=== PATIENT | female | born 1985 | race Caucasian/White ===

== ENCOUNTER 2021-03-17 14:32 | Outpatient (CLI) | payer OTHER, SELFPAY ==
--- NOTE | ~2021-03-17 | US_ITS ---
EXAMINATION: US thyroid DATE: 03/17/2021 15:05 INDICATION: Goiter. TECHNIQUE: Multiple ultrasound images of the thyroid were obtained. COMPARISON: None. FINDINGS: The right thyroid lobe measures 4.7 x 1.3 x 1.2 cm. The left thyroid lobe measures 3.9 x 2.1 x 2.0 c m. In the left thyroid lobe, there is a 3.5 cm solid, hypoechoic, [id number] nodule with smooth margin without echogenic foci (TI-RADS TR4). There is a 4 mm nodule in right thyroid lobe, likely no t clinically significant. IMPRESSION: 1. Left thyroid nodule. Ultrasound-guided fine-needle aspiration is recommended. Reviewed, dictated and finalized at location [facility]. IMPRESSION: 1. Left thyroid nodule. Ultrasound-guided fine-needle aspiration is recommended .
== END 2021-03-17 14:33 | disposition home or self-care (01) ==
LOC: ANHIMG 14:42
PROVIDERS: PCP Nurse Practitioner Family; Visit Provider Nurse Practitioner Family
DX: E04.9 Nontoxic goiter, unspecified (principal); R09.89 Other specified symptoms and signs involving the circulatory and respiratory systems
CPT/HCPCS: 76536

== ENCOUNTER 2023-08-17 14:53 | Outpatient (CLI) | payer OTHER, SELFPAY ==
--- NOTE | ~2023-08-17 | CT_ITS ---
EXAMINATION: CT sinus wo con the nasal septum TECHNIQUE: Computed tomography (CT) of the paranasal si nuses was performed without contrast. Iterative reconstruction technique was employed. Exam dose: 32 1.89 mGy-cm total exam DLP. COMPARISON: None FINDINGS: The nasal septum is midline. There is prominent soft tissue swelling engulfing the right middle nasal turbinate, moderate soft tis marshal swelling of the raising tarsal turbinates. Caren bullosa of the left middle nasal turbinate. There are nasal antral windows bilaterally. There is nearly complete opacification of the right frontal sinus and extensive opacification of the right ethmoid air cells. Opacification of an anterior left ethmoid air cell partial opacification of the posterior left ethmoid air cell. Very prominent mucoperiosteal thickening of both maxillary sinuses. 8.7 mm polyp or mucous retention cysts in the anterior floor of the right sphenoid sinus. The mastoid air cells are normally developed and aerated bilaterally. The middle and inner ear apparatus appear normal bilaterally. IMPRESSION: Status post bilateral nasal antral windows Midline nasal septum Caren bullosa of left middle nasal turbinate Extensive soft tissue swelling engulfing the right middle nasal turbinate Severe mucoperiosteal thickening of the sinus, bilateral maxillary sinuses, right ethmoid air cells a nd to a lesser extent left ethmoids Soft tissue opacity at anterior base of right sphenoid sinus Reviewed, dictated and finalized at [facility]. Reviewed, dictated and finalized at location [facility]. IMPRESSION: Status post bilateral nasal antral windows Midline nasal septum Caren bullosa of left middle nasal turbinate Extensive soft tissue swelling engulfing the right middle nasal turbinate Severe mucoperiosteal thickening of the sinus, bilateral maxillary sinuses, rig ht ethmoid air cells and to a lesser extent left ethmoids Soft tissue opacity at anterior base of right sphenoid sinus
== END 2023-08-17 14:54 | disposition home or self-care (01) ==
LOC: ANHIMG 14:54
PROVIDERS: PCP Nurse Practitioner Family; Visit Provider Physician Assistant
DX: J32.9 Chronic sinusitis, unspecified (principal)
CPT/HCPCS: 70486

== ENCOUNTER 2024-02-07 09:39 | Outpatient (CLI) | payer OTHER, SELFPAY ==
[2024-02-07 10:02] LABS: Basophils Percent Auto 0.4 % (0.2-1.2); Eosinophils Absolute Auto 0.1 K/mm3 (0-0.3); Eosinophils Percent Auto 1.1 % (0-4.4); Hematocrit 42.6 % (37.0-47.0); Hemoglobin 13.5 g/dL (12.0-15.0); Immature Granulocyte Absolute 0.01 K/mm3 (0.00-0.031); Immature Granulocyte Percent A 0.2 % (0-0.5); Lymphocytes Absolute Auto 1.57 K/mm3 (0.9-3.2); Lymphocytes Percent Auto 29.8 % (18.3-44.2); Mean Corpuscular HGB Conc 31.7 g/dl (32-36); Mean Corpuscular Hemoglobin 29.3 pg (26-34); Mean Corpuscular Volume 92.6 fl (80-100); Mean Platelet Volume 10.2 fl (7.4-10.4); Monocytes Absolute Auto 0.4 K/mm3 (0.1-0.6); Neutrophils Absolute Auto 3.2 K/mm3 (1.3-6.7); Neutrophils Percent Auto 60.5 % (45.5-73.1); Platelet Count Result 241 k/mm3 (150-375); Red Cell Distribution Width 12.9 % (11.5-14.5); White Blood Count 5.3 K/mm3 (4.5-10.0)
[2024-02-07 10:27] LABS: Anion Gap 8 mmol/L (4-12); Blood Urea Nitrogen 14 mg/dL (7-17); Calcium 9.1 mg/dL (8.4-10.2); Carbon Dioxide 22 mmol/L (22-30); Chloride 109 mmol/L (98-107); Estimated Glomerular Filt Rate > 60; Glucose 94 mg/dL (65-110); Potassium 3.9 mmol/L (3.4-5.0); Sodium 139 mmol/L (137-145)
[2024-02-07 10:53] LABS: Thyroid Stimulating Hormone 0.594 uIU/mL (0.465-4.680)
[2024-02-07 11:05] LABS: Free T4 Free Thyroxine 1.08 ng/mL (0.78-2.19)
[2024-02-09 14:34] LABS: Immunoglobulin A 196 mg/dL (47-310); Immunoglobulin G 1255 mg/dL (600-1640); Immunoglobulin M 82 mg/dL (50-300)
[2024-02-12 10:04] LABS: Immunoglobulin G, Serum 1085 mg/dL (600-1640); Immunoglobulin G1 533 mg/dL (382-929); Immunoglobulin G2 347 mg/dL (241-700); Immunoglobulin G3 30 mg/dL (22-178); Immunoglobulin G4 98.9 mg/dL (4.0-86.0)
== END 2024-02-07 09:40 | disposition home or self-care (01) ==
PROVIDERS: PCP Nurse Practitioner Family; Visit Provider Physician Assistant
DX: R09.81 Nasal congestion (principal); J45.909 Unspecified asthma, uncomplicated; J33.9 Nasal polyp, unspecified; E04.9 Nontoxic goiter, unspecified
CPT/HCPCS: 36415; 80048; 82784; 82787; 84439; 84443; 85025

== ENCOUNTER 2024-07-22 15:25 | Outpatient (NON) | payer OTHER, SELFPAY ==
[2024-07-22 19:05] LABS: Add Urine Microscopic? NO; Appearance Urine Clear (Clear); Bilirubin Urine Negative (Negative); Blood Urine Negative (Negative); Color Urine Yellow (Yellow); Glucose Urine UA Negative (Negative); Ketones Urine Negative (Negative); Leukocyte Esterase Ur Negative LEU/UL (Negative); Nitrate Urine Negative (Negative); Protein Urine Negative (Negative); Specific Grav Ur 1.008 (1.001-1.035); Urobilinogen Urine 0.2 mg/dL (<2.0)
== END 2024-07-22 15:26 | disposition home or self-care (01) ==
PROVIDERS: PCP Clinical Nurse Specialist; Visit Provider Clinical Nurse Specialist
DX: R39.9 Unspecified symptoms and signs involving the genitourinary system (principal)
CPT/HCPCS: 81003

== ENCOUNTER 2024-07-23 08:27 | Outpatient (CLI) | payer OTHER, SELFPAY ==
[2024-07-23 08:59] LABS: Basophils Percent Auto 0.2 % (0.2-1.2); Eosinophils Absolute Auto 0.1 K/mm3 (0-0.3); Eosinophils Percent Auto 2.9 % (0-4.4); Hematocrit 42.1 % (37.0-47.0); Hemoglobin 13.8 g/dL (12.0-15.0); Immature Granulocyte Absolute 0.01 K/mm3 (0.00-0.031); Immature Granulocyte Percent A 0.2 % (0-0.5); Lymphocytes Absolute Auto 1.48 K/mm3 (0.9-3.2); Lymphocytes Percent Auto 32.8 % (18.3-44.2); Mean Corpuscular HGB Conc 32.8 g/dl (32-36); Mean Corpuscular Hemoglobin 30.4 pg (26-34); Mean Corpuscular Volume 92.7 fl (80-100); Mean Platelet Volume 10.4 fl (7.4-10.4); Monocytes Absolute Auto 0.5 K/mm3 (0.1-0.6); Monocytes Percent Auto 10.2 % (2.6-8.5); Neutrophils Absolute Auto 2.4 K/mm3 (1.3-6.7); Neutrophils Percent Auto 53.7 % (45.5-73.1); Platelet Count Result 224 k/mm3 (150-375); Red Blood Count 4.54 M/mm3 (4.2-5.4); Red Cell Distribution Width 12.9 % (11.5-14.5); White Blood Count 4.5 K/mm3 (4.5-10.0)
[2024-07-23 09:17] LABS: Alanine Aminotransferase 13 U/L (6-35); Albumin Level 4.1 g/dL (3.5-5.1); Alkaline Phosphatase 38 U/L (38-126); Anion Gap 5 mmol/L (4-12); Aspartate Amino Transferase 22 U/L (14-36); Bilirubin,Total 0.9 mg/dL (0.2-1.3); Blood Urea Nitrogen 14 mg/dL (7-17); Calcium 8.4 mg/dL (8.4-10.2); Carbon Dioxide 25 mmol/L (22-30); Chloride 108 mmol/L (98-107); Cholesterol 167 mg/dL (0-200); Estimated Glomerular Filt Rate > 60; Glucose 86 mg/dL (65-110); HDL Direct 63 mg/dL; Potassium 4.1 mmol/L (3.4-5.0); Sodium 138 mmol/L (137-145); Triglycerides 42 mg/dL (<150)
[2024-07-23 09:23] LABS: Iron 92 ug/dL (37-170)
[2024-07-23 09:28] LABS: LDL Cholesterol Direct 73 mg/dL
[2024-07-23 09:38] LABS: Percent Iron Saturation 30 % (20-50)
[2024-07-23 09:44] LABS: Thyroid Stimulating Hormone 0.747 uIU/mL (0.465-4.680)
[2024-07-23 09:47] LABS: Free T4 Free Thyroxine 1.09 ng/mL (0.78-2.19); Vitamin D 25 Hydroxy 37.2 ng/mL
[2024-07-29 09:43] LABS: Thyroid Peroxidase Antibodies <1 IU/mL (<9)
== END 2024-07-23 08:28 | disposition home or self-care (01) ==
PROVIDERS: PCP Clinical Nurse Specialist; Visit Provider Clinical Nurse Specialist
DX: R74.8 Abnormal levels of other serum enzymes (principal); D64.9 Anemia, unspecified; R73.9 Hyperglycemia, unspecified; E04.9 Nontoxic goiter, unspecified; E55.9 Vitamin D deficiency, unspecified; J45.909 Unspecified asthma, uncomplicated; Z13.220 Encounter for screening for lipoid disorders; Z13.228 Encounter for screening for other metabolic disorders
CPT/HCPCS: 36415; 80053; 80061; 82306; 82607; 82728; 83036; 83540; 83550; 84439; 84443; 85025; 86376

== ENCOUNTER 2024-07-25 06:51 | Outpatient (CLI) | payer OTHER, SELFPAY ==
--- NOTE | ~2024-07-25 | CT_ITS ---
Non-contrast CT scan of the Abdomen and Pelvis Clinical indication: Abdominal pain Technique: 2.5 mm axial scans were obtained through the abdomen and pelvis without intravenous or or al contrast. Dose reduction technique was used on this scan by utilizing automated exposure control a nd iterative reconstruction technique. The dose-length product (DLP) was 691.70 mGy-cm. Findings: Images through the lung bases reveal no abnormalities. There is no evidence of renal or ureteral calculi. The kidneys and the ureters are nondilated. Small left hepatic lobe cyst noted. The spleen, pancreas, gallbladder, and adrenals appear normal. T here is no aortic aneurysm. There is no evidence of bowel obstruction. Images through the pelvis were performed. There is trace pelvic free fluid. Urinary bladder unremarka ble. No pelvic mass seen. Impression: Trace pelvic free fluid, nonspecific. No other significant findings. Reviewed, dictated and finalized at [facility]. Impression: Trace pelvic free fluid, nonspecific. No other significant findings.
== END 2024-07-25 06:52 | disposition home or self-care (01) ==
PROVIDERS: PCP Clinical Nurse Specialist; Visit Provider Clinical Nurse Specialist
DX: R10.9 Unspecified abdominal pain (principal); R39.9 Unspecified symptoms and signs involving the genitourinary system; R10.2 Pelvic and perineal pain
CPT/HCPCS: 74176

== ENCOUNTER 2024-12-25 09:06 | Outpatient (CLI) | payer OTHER, SELFPAY ==
--- NOTE | ~2024-12-25 | MM_ITS ---
EXAMINATION: MM screening rehana BI w [facility] HISTORY: Screening mammogram TECHNIQUE: Craniocaudal and mediolateral oblique 3-D tomosynthesis images were obtained and synthetic 2-D images were generated. CAD analysis was submitted and interpreted. COMPARISON: No prior mammogram is available for comparison at this institution. BREAST PARENCHYMAL COMPOSITION:Not Dense. There are scattered areas of fibroglandular density. FINDINGS: No suspicious mass, calcification, or architectural distortion are identified in either nori ast to suggest malignancy. There has been no suspicious interval change. IMPRESSION: No mammographic evidence of malignancy. Recommend routine screening mammography in one year. BI-RADS Category 1: Negative Reviewed, dictated and finalized at location .
--- OUTSIDE RECORDS SUMMARY | 2024-12-25 10:04 | XMS_ITS ---
Author Organization [employer] [place] Address [address] [place] [address] Care Team Providers Care Car Lubricator Name Role Phone Varsha Setward Primary Care Provider REASON FOR VISIT lab review// text please Medications Medication SIG (Take, Route, Frequency, Duration) Notes Start Date End Date Status Albuterol Sulfate HFA 108 (90 Base) MCG/ACT 2 INH inhaled every 6 hours 08/22/2024 Active Vitamin D (Cholecalciferol) 25 MCG (1000 UT) 1 capsule Orally Once a day Active Encounters Encounter Location Date Provider Diagnosis [facility] [address] [address] [place] [address] 09/17/2024 Varsha Steward Vitamin D deficiency , unspecified E55.9 ; Nontoxic single thyroid nodule E04.1 ; Iron deficiency E61.1 and Other fatigue R53.83 Assessments Encounter Date Diagnosis (ICD Code) Assessment Notes Treatment Notes Treatment Clinical Notes Section Notes 09/17/2024 Vitamin D deficiency, unspecified (ICD-10 - E55.9) 09/17/2024 Nontoxic single thyroid nodule (ICD-10 - E04.1) 09/17/2024 Iron deficiency (ICD-10 - E61.1) 09/17/2024 Other fatigue (ICD-10 - R53.83) 09/17/2024 Other Assessment and Plan: 1. Vitamin D deficiency:- Continue taking vitamin D and calcium supplements- Increase calcium intake to at least 2000 milligrams daily- Continue taking magnesium supplements 2. Low iodine levels and thyroid nodules:- Continue taking thyroid supplements- Monitor progress and discuss with surgeon during the consult on December 22 3. Borderline low ALKFOS and calcium levels:- Rule out hypophosphatasia, considering the absence of bone issues- Increase calcium intake as mentioned above 4. Borderline anemia and low ferritin levels:- Increase iron intake to 65 milligrams of elemental iron daily- Monitor symptoms and consider transvaginal ultrasound if symptoms worsen during cycles 5. Sleep disturbances due to sinus issues:- Continue new steroid treatment prescribed by ENT- Monitor sleep quality and discuss with ENT if no improvement 6. Low progesterone levels and possible ovarian cysts/fibroids:- Consider low-dose progesterone therapy (0.35 mg daily or 100 micrograms from days 14 through 28 of the cycle) if symptoms persist or worsen- Reevaluate the need for a transvaginal ultrasound based on symptom progression 7. Thyroid surgery scheduling:- Schedule surgery within a month of the initial appointment in December- Follow up with Dr. Varsha Steward after surgery Patient to contact the office if any concerns arise or if there is a need for progesterone therapy. Spent 25 minutes preparing to see the patient (ex review of tests/chart), obtaining and / or reviewing separately obtained history, performing a medically appropriate examination and/or evaluation, counseling and educating the patient/family/ca regiver, ordering medications, tests, or procedures, referring and communicating with other health healthcare business analyst, documenting clinical information in the electronic or other health record, independently interpreting results and communicating results to the patient/family/ca regiver and care coordinating patient plan. Patient alert and oriented x 4 and aware of discussion noted above and in agreeance to plan in management of thyroid nodule, fatigue, finding of iodine deficiency, DIMITRI and low calcium/vit D def. Due to the nature of telemedicine, the ability to do physical assessment was limited to what can be accomplished by patient directed telehealth visit based on instruction. Those limits are understood by the patient and myself. Impression is based on history, available information, and physical findings accomplished with telehealth visit. Chronic disease/problem list/ medication list reviewed and updated where indicated. Discussed diagnosis, plan including risks, benefits, and options of treatment. Advised to call for new, worsening, or persistent symptoms. Level of patient risk was of moderate complexity due to the documented nature of presentation, the information assessment required and the nature of the development of an evaluation and treatment plan as documented. PMH, FHx, SHx, Surgical Hx, Quality management review carried out and addressed as documented today as part of this visit. Medication list was reviewed and adjusted as indicated. Medication requiring a refill was addressed. Risk and benefits of any new medications were discussed and all questions were answered. Plan Of Treatment Treatment Notes Assessment Notes Other Assessment and Plan: 1. Vitamin D deficiency:- Continue taking vitamin D and calcium supplements- Increase calcium intake to at least 2000 milligrams daily- Continue taking magnesium supplements 2. Low iodine levels and thyroid nodules:- Continue taking thyroid supplements- Monitor progress and discuss with surgeon during the consult on December 22 3. Borderline low ALKFOS and calcium levels:- Rule out hypophosphatasia, considering the absence of bone issues- Increase calcium intake as mentioned above 4. Borderline anemia and low ferritin levels:- Increase iron intake to 65 milligrams of elemental iron daily- Monitor symptoms and consider transvaginal ultrasound if symptoms worsen during cycles 5. Sleep disturbances due to sinus issues:- Continue new steroid treatment prescribed by ENT- Monitor sleep quality and discuss with ENT if no improvement 6. Low progesterone levels and possible ovarian cysts/fibroids:- Consider low-dose progesterone therapy (0.35 mg daily or 100 micrograms from days 14 through 28 of the cycle) if symptoms persist or worsen- Reevaluate the need for a transvaginal ultrasound based on symptom progression 7. Thyroid surgery scheduling:- Schedule surgery within a month of the initial appointment in December- Follow up with Dr. Varsha Steward after surgery Patient to contact the office if any concerns arise or if there is a need for progesterone therapy. Spent 25 minutes preparing to see the patient (ex review of tests/chart), obtaining and / or reviewing separately obtained history, performing a medically appropriate examination and/or evaluation, counseling and educating the patient/family/caregiver, ordering medications, tests, or procedures, referring and communicating with other health healthcare business analyst, documenting clinical information in the electronic or other health record, independently interpreting results and communicating results to the patient/family/caregiver and care coordinating patient plan. Patient alert and oriented x 4 and aware of discussion noted above and in agreeance to plan in management of thyroid nodule, fatigue, finding of iodine deficiency, DIMITRI and low calcium/vit D def. Due to the nature of telemedicine, the ability to do physical assessment was limited to what can be accomplished by patient directed telehealth visit based on instruction. Those limits are understood by the patient and myself. Impression is based on history, available information, and physical findings accomplished with telehealth visit. Chronic disease/problem list/ medication list reviewed and updated where indicated. Discussed diagnosis, plan including risks, benefits, and options of treatment. Advised to call for new, worsening, or persistent symptoms. Level of patient risk was of moderate complexity due to the documented nature of presentation, the information assessment required and the nature of the development of an evaluation and treatment plan as documented. PMH, FHx, SHx, Surgical Hx, Quality management review carried out and addressed as documented today as part of this visit. Medication list was reviewed and adjusted as indicated. Medication requiring a refill was addressed. Risk and benefits of any new medications were discussed and all questions were answered. Next Appt Details Follow Up: 4 Months, Reason: labwork Progress Notes * Ellen URIBEDOB:1985 (39 yo F)Acc No.[id number]:09/17/2024 Progress Notes Patient: Ellen FUNEZ Provider: Lu Steward MD :1985 A ge:39 Y S ex:Female Date:09/17/2024 Address:[address] [place], [place] [id number] Subjective: * Chief Complaints: * 1 . Lab review// text please. * HPI: I nterval Hx: 39 yo female calls in today to initiate telehealth visit to discuss progress and management of vit D def, low iodine/hashimotos thyroiditis, along with low calcium. Verbal consent provided by patient to proceed with this visit. This visit was performed in office via provider and patient located in primary care office with real time audio with video. Ellen reports a family history of thyroid problems and has started taking a thyroid supplement. She is experiencing sleep disturbances due to sinus issues and is using a new steroid prescribed by her ENT. Her recent lab results indicate low levels of vitamin D, calcium, iodine, ferritin, and progesterone, with borderline low ALKFOS and iron levels. She is scheduled for a thyroid surgery consult on December 22 and is considering addressing her low progesterone levels and the possibility of a transvaginal ultrasound before the surgery. The patient, Ellen, reports a family history of thyroid problems and has recently started taking a thyroid supplement as recommended during the last appointment. She began taking the supplement after her recent blood work. Ellen has a surgery consult scheduled for December 22. She is currently taking vitamin D, calcium, iron, multivitamin, and thyroid supplements. The patient denies any bone or dental problems. She reports no significant changes in her condition since the last visit, mentioning that she got her period two days before her lab work and feels tired. Ellen has started a new steroid with her ENT to help with her sinuses. She denies any developmental issues during childhood. Ellen reports difficulty falling asleep and waking up multiple times during the night, primarily due to sinus issues. She describes her mood as stable, with occasional tiredness and annoyance but no significant anxiety. The patient has a 90-day supply of vitamins purchased online. She had a transvaginal ultrasound ordered by her primary care physician for a suspected burst ovarian cyst a few months ago, but the pain resolved, and she did not undergo the ultrasound. Ellen is considering whether to address her low progesterone levels and the possibility of a transvaginal ultrasound before her thyroid surgery. Diagnostic Test Results and Labs: - Vitamin D: Low (specific value not documented) - Iodine: 49 (desired levels 60-70) - Calcium: Low (specific value not documented) - Parathyroid Hormone (PTH): Lower than desired (specific value not documented) - Alkaline Phosphatase (ALKFOS): Borderline at 40 - Iron: Borderline (specific value not documented) - Ferritin: Low (specific value not documented) - Progesterone: Low (specific value not documented) - Blood counts: Normal (specific values not documented). * ROS: D ERMATOLOGY: no r allen. n o c hange in color of moles. n o?lumps. n o d ry or sensitive skin. n o h antonio. n o o karly skin. n o?acne. n o m oles-irregular. n o m oles-change/new. n o b oils. n o dandruff. n o e xcessive body odor. n o p soriasis. n o f ungal infections. n o n ail problems. n o r edness/inflammation. n o a thlete's foot. n o s kin cancer. n o e czema. E NDOCRINOLOGY: fatigue y es. n o e xcessive sweating. n o e xcessive thirst. n o e xcessive urination. n o w eight loss. n o s leep disturbance. n o c old intolerance. n o h eat intolerence. n o t hyroid disease. n o i ncreased loss of hair. n o h x of borderline diabetes. n o d iabetes. n o a bdormal body hair. n o r heumatism. n o c hanges in skin texture.? N EUROLOGY: headache y es. n o t ingling numbness. n o s eizures. n o i nsomnia. n o m sacha loss. n o d izziness. n o g ait abnormality. n o c hange in sensation anywhere on body. n o l ocalized weakness or numbness. n o b lackouts or near blackouts. n o m igraine. n o t remors.?no f ainting spells. n o h ead injury. n o s troke. O PTHALMOLOGY: no d iminished vision. n o e ye irritation. n o?drainage from eyes. n o b lurring of vision. n o s easonal eye sx. n o?dander related eye sx. n o l oss of vision. n o c ataracts. n o g lasses/contacts. n o g laucoma. n o d etached retina. n o m acular degeneration.?no e ye redness. R ESPIRATORY: shortness of breath y es. n o c hest pain. n o?wheezing. n o a sthma. n o b reathlessness when lying flat. n o p rolonged cough. n o f requent infections (bronchitis). n o e mphysema. n o c hest congestion. n o s leep apnea. A LLERGY: no r unny nose. n o s cratchy throat. n o i tchy eyes. n o e ar fullness. n o s inus congestion. n o s tuffy nose. n o w atery eyes. n o s easonal allergies. n o h ay fever. n o a llergy.?no p olyps. n o s neezing. H EMATOLOGY/LYMPH: no s wollen glands. n o f atigue. n o l oss of appetite. e asy bruising yes. e asy bleeding y es. n o a nemia. ? U ROLOGY: no d ifficulty urinating. n o b lood in urine. n o u rinary urgency. n o f requent urination. n o u rinary incontinence. n o v oiding dysfunction. n o v ulvodynia. n o d ysparaunia. n o r ecurrent UTI. n o w eak flow. n o d ribbling after urination. n o f requent bladder infections. n o k idney stone. n o k idney disease. n o u rine hesitancy.?no p ainful urination. N UTRITION: greater than body requirmemts y es. L ess than body requirements y es. a ppropriate / adequate y es, y es. C ONSTITUTIONAL: weight gain y es. n o l oss of appetite. n o?fever. w eakness y es. n o w eight loss. n o n ight sweats. n o n ausea. n o v isual changes. n o c hange in sleep patterns. h +p reviewed y es, R OS form reviewed with patient see scan for detail. n o c hange in activity capacity. E NT: no c old. c ough y es. n o c oughing blood.?no n ose bleed. n o h earing loss. n o c hange in voice. n o s ore throat. n o r inging in ears. n o s noring. n o e ar pain. n o r unny nose. n o w atery eyes. n o s inus infection. n o e ar infection. n o facial pain. n o h oarseness. n o g oiter. n o g um problems. n o?postnasal drip. n o f requent nosebleeds. C ARDIOLOGY: no c hest pain. n o p alpitations. n o l eg swelling. n o d izziness. n o s hortness of breath. n o v aricose veins.?no l eg cramps. n o c old hands or feet. n o h igh blood pressure. n o ankle swelling. n o c ardiac catheterization. n o h eart attacks. n o a ngina. n o m urmurs. n o l ow blood pressure. n o l eg pain that resolves w/rest. n o p urple fingers or lips. n o i rregular heart rate. n o c ongenital heart defects. n o d izziness when standing up quickly. n o a wakening at night short of breath. G ASTROENTEROLOGY: no n ausea. n o h eartburn. n o s tool incontinence. n o r eflux. n o a bdominal pain. n o i ndigestion. n o h emorrhoids. n o h iatal hernia. n o u lcers. n o a nal fissures. n o?hepatitis. n o g allstones. n o r ed blood after bowel movements. n o v omiting. n o b loating/belching. d ifficulty swallowing y es. n o d iarrhea.?no c onstipation. n o c hange in bowel habits. n o b lood in stool. ? M USCULOSKELETAL: no j oint swelling. n o j oint pain. n o l eg cramps. n o j oint stiffness. n o a rthritis. n o b ack pain. n o?muscle aches. n o m orning stiffness. n o t endinitis. n o n [place] pain. no b ursitis. n o b one marrow biopsy. n o g out. a ctivity intolerance?weakness. n o f racture. P SYCHOLOGY: no h igh stress level. n o d epression. n o?sleep disturbances. n o r se sx worse with stress. n o s uicidal ideation. n o e ating disorder. n o m ental or physical abuse. n o a nxiety. n o h eadaches. d isease state y es. F EMALE REPRODUCTIVE: no h eavy periods. n o d ysparaunia. n o s exually active. n o p remenstrual syndrome. n o d ysmenorrhea. n o i nfertility. n o f requent yeast infections. n o v aginal itching. n o i ntermenstrual bleeding. n o p ost coital bleeding. n o p ostmenopausal bleeding. n o p elvic pain. n o m enstral cycle. n o v aginal discharge. n o v aginal dryness. n o o varian cysts. n o f ibroids. n o d ischarge from breast. n o abn. bleeding between cycles. n o p ostmenopausal symptoms. n o l oss of sexual interest. n o p ainful sexual intercourse. n o e ndometriosis. n o v aginal warts. n o a bnormal pap. n o i rregular periods. n o a bnormal vaginal discharge. n o h ot flashes. * Medical History: * Medications: T aking Vitamin D (Cholecalciferol) 25 MCG (1000 UT) Capsule 1 capsule Orally Once a day , Taking Albuterol Sulfate HFA 108 (90 Base) MCG/ACT Aerosol Solution 2 INH inhaled every 6 hours Objective: * Vitals: * P ast Orders: L ab:VITAMIN D, 25-HYDROXY, LC/MS/MS (Order Date - 08/27/2024) (Collection Date & Time - 08/27/2024 07:30 AM) Value Reference Range VITAMIN D, 25-OH, TOTAL 21 L 30-100 - ng/mL L ab:LH (Order Date - 08/27/2024) (Collection Date & Time - 08/27/2024 07:30 AM) Value Reference Range LH 4.9 - mIU/mL L ab:PROGESTERONE (Order Date - 08/27/2024) (Collection Date & Time - 08/27/2024 07:30 AM) Value Reference Range PROGESTERONE 0.5 - ng/mL L ab:ESTRADIOL (Order Date - 08/27/2024) (Collection Date & Time - 08/27/2024 07:30 AM) Value Reference Range ESTRADIOL 38 - pg/mL L ab:VITAMIN B12/FOLATE, SERUM PANEL (Order Date - 08/27/2024) (Collection Date & Time - 08/27/2024 07:30 AM) Value Reference Range FOLATE, SERUM 9.2 - ng/mL VITAMIN B12 133 690-2188 - pg/mL L ab:TESTOSTERONE, FREE (DIALYSIS) AND TOTAL,MS (Order Date - 08/27/2024) (Collection Date & Time - 08/27/2024 07:30 AM) Value Reference Range TESTOSTERONE, TOTAL, MS 20 2-45 - ng/dL TESTOSTERONE, FREE 1.7 0.1-6.4 - pg/mL L ab:CORTISOL, TOTAL (Order Date - 08/27/2024) (Collection Date & Time - 08/27/2024 07:30 AM) Value Reference Range CORTISOL, TOTAL 13.4 - mcg/dL L ab:T4, FREE (Order Date - 08/27/2024) (Collection Date & Time - 08/27/2024 07:30 AM) Value Reference Range T4, FREE 1.2 0.8-1.8 - ng/dL L ab:CBC (INCLUDES DIFF/PLT) (Order Date - 08/27/2024) (Collection Date & Time - 08/27/2024 07:30 AM) Value Reference Range WHITE BLOOD CELL COUNT 5.4 3.8-10.8 - [place] nd/uL RED BLOOD CELL COUNT 4.60 3.80-5.10 - Million /uL HEMOGLOBIN 13.9 11.7-15.5 - g/dL HEMATOCRIT 42.9 35.0-45.0 - % MCV 93.3 80.0-100.0 - fL MCH 30.2 27.0-33.0 - pg MCHC 32.4 32.0-36.0 - g/dL RDW 12.0 11.0-15.0 - % PLATELET COUNT 237 140-400 - Thousand/u L NEUTROPHILS 65 - % ABSOLUTE NEUTROPHILS 3510 1124-6533 - cells/u L LYMPHOCYTES 24.9 - % ABSOLUTE LYMPHOCYTES 8453 195-1548 - cells/uL MONOCYTES 6.8 - % ABSOLUTE MONOCYTES 367 200-950 - cells/uL EOSINOPHILS 3.1 - % ABSOLUTE EOSINOPHILS 167 15-500 - cells/uL BASOPHILS 0.2 - % ABSOLUTE BASOPHILS 11 0-200 - cells/uL MPV 11.6 7.5-12.5 - fL L ab:IODINE, SERUM/PLASMA (Order Date - 08/27/2024) (Collection Date & Time - 08/27/2024 07:30 AM) Value Reference Range IODINE, SERUM/PLASMA 49 L 52-109 - mcg/L L ab:ACTH, PLASMA (Order Date - 08/27/2024) (Collection Date & Time - 08/27/2024 07:30 AM) Value Reference Range ACTH, PLASMA 9 6-50 - pg/mL L ab:DHEA SULFATE (Order Date - 08/27/2024) (Collection Date & Time - 08/27/2024 07:30 AM) Value Reference Range DHEA SULFATE 63 19-237 - mcg/dL L ab:IRON AND TOTAL IRON BINDING CAPACITY (Order Date - 08/27/2024) (Collection Date & Time - 08/27/2024 07:30 AM) Value Reference Range IRON, TOTAL 49 40-190 - mcg/dL IRON BINDING CAPACITY 288 250-450 - mcg/dL ( calc) % SATURATION 17 16-45 - % (calc) L ab:LIPID PANEL (Order Date - 08/27/2024) (Collection Date & Time - 08/27/2024 07:30 AM) Value Reference Range TRIGLYCERIDES 39 <150 - mg/dL CHOLESTEROL, TOTAL 155 <200 - mg/dL HDL CHOLESTEROL 60 > OR = 50 - mg/dL LDL-CHOLESTEROL 84 - mg/dL (calc) CHOL/HDLC RATIO 2.6 <5.0 - (calc) NON-HDL CHOLESTEROL 95 <130 - mg/dL (calc) L ab:COMPREHENSIVE METABOLIC PANEL (Order Date - 08/27/2024) (Collection Date & Time - 08/27/2024 07:30 AM) Value Reference Range GLUCOSE 83 65-99 - mg/dL UREA NITROGEN (BUN) 14 7-25 - mg/dL CREATININE 0.66 0.50-0.99 - mg/dL BUN/CREATININE RATIO SEE NOTE: 6-22 - (calc) SODIUM 142 135-146 - mmol/L POTASSIUM 4.1 3.5-5.3 - mmol/L CHLORIDE 109 98-110 - mmol/L CARBON DIOXIDE 28 20-32 - mmol/L CALCIUM 8.4 L 8.6-10.2 - mg/dL PROTEIN, TOTAL 6.4 6.1-8.1 - g/dL ALBUMIN 4.0 3.6-5.1 - g/dL GLOBULIN 2.4 1.9-3.7 - g/dL (calc ) ALBUMIN/GLOBULIN RATIO 1.7 1.0-2.5 - (calc) BILIRUBIN, TOTAL 0.6 0.2-1.2 - mg/dL ALKALINE PHOSPHATASE 40 31-125 - U/L AST 13 10-30 - U/L ALT 8 6-29 - U/L EGFR 114 > OR = 60 - mL/min/1.73m2 L ab:MAGNESIUM (Order Date - 08/27/2024) (Collection Date & Time - 08/27/2024 07:30 AM) Value Reference Range MAGNESIUM 1.9 1.5-2.5 - mg/dL L ab:T3, FREE (Order Date - 08/27/2024) (Collection Date & Time - 08/27/2024 07:30 AM) Value Reference Range T3, FREE 3.7 2.3-4.2 - pg/mL L ab:FSH (Order Date - 08/27/2024) (Collection Date & Time - 08/27/2024 07:30 AM) Value Reference Range FSH 12.2 - mIU/mL L ab:CALCITONIN (Order Date - 08/27/2024) (Collection Date & Time - 08/27/2024 07:30 AM) Value Reference Range CALCITONIN <2 < OR = 5 - pg/mL L ab:TSH (Order Date - 08/27/2024) (Collection Date & Time - 08/27/2024 07:30 AM) Value Reference Range TSH 0.72 - mIU/L L ab:FERRITIN (Order Date - 08/27/2024) (Collection Date & Time - 08/27/2024 07:30 AM) Value Reference Range FERRITIN 13 L 16-154 - ng/mL L ab:PTH, INTACT AND CALCIUM (Order Date - 08/27/2024) (Collection Date & Time - 08/27/2024 07:30 AM) Value Reference Range CALCIUM 8.4 L 8.6-10.2 - mg/dL PARATHYROID HORMONE, INTACT 38 16-77 - pg/m L * Examination: G eneral Examination: General n ormal, NAD, well nourished and hydrated, pleasant. Neck, thyroid : s upple. Assessment: * Assessment: 1. V itamin D deficiency, unspecified - E55.9 (Primary) 2 . N ontoxic single thyroid nodule - E04.1 3 . I jennyfer deficiency - E61.1 4 . O ther fatigue - R53.83 Plan: * Treatment: * Procedure Codes: 9 9401 P/M CLINICAL BUSINESS ANALYST, INDIV 15 MIN * Follow Up: 4 Months (Reason: labwork) * Billing Information: * Visit Code: 15057 Office Visit, Est Pt., Level 4. Modifiers: 95 * Procedure Codes: 37070 P/M CLINICAL BUSINESS ANALYST, INDIV 15 MIN. * CLOCK MECHANIC Sign off status: Completed true * Provider: Lu Steward MD Date: 11/18/2023 Generated for Printi ng/Fakadeng/eTransmitting on: 0 12/25/2024 10:04 AM CDT History and Physical Notes * HPI (History of Present Illness) Category Sub-Category Detail Notes Category Not es Interval Hx 39 yo female calls in today to initiate telehealth visit to discuss progress and management of vit D def, low iodine/hashimotos thyroiditis, along with low calcium. Verbal consent provided by patient to proceed with this visit. This visit was performed in office via provider and patient located in primary care office with real time audio with video. Ellen reports a family history of thyroid problems and has started taking a thyroid supplement. She is experiencing sleep disturbances due to sinus issues and is using a new steroid prescribed by her ENT. Her recent lab results indicate low levels of vitamin D, calcium, iodine, ferritin, and progesterone, with borderline low ALKFOS and iron levels. She is scheduled for a thyroid surgery consult on December 22 and is considering addressing her low progesterone levels and the possibility of a transvaginal ultrasound before the surgery. The patient, Ellen, reports a family history of thyroid problems and has recently started taking a thyroid supplement as recommended during the last appointment. She began taking the supplement after her recent blood work. Ellen has a surgery consult scheduled for December 22. She is currently taking vitamin D, calcium, iron, multivitamin, and thyroid supplements. The patient denies any bone or dental problems. She reports no significant changes in her condition since the last visit, mentioning that she got her period two days before her lab work and feels tired. Ellen has started a new steroid with her ENT to help with her sinuses. She denies any developmental issues during childhood. Ellen reports difficulty falling asleep and waking up multiple times during the night, primarily due to sinus issues. She describes her mood as stable, with occasional tiredness and annoyance but no significant anxiety. The patient has a 90-day supply of vitamins purchased online. She had a transvaginal ultrasound ordered by her primary care physician for a suspected burst ovarian cyst a few months ago, but the pain resolved, and she did not undergo the ultrasound. Ellen is considering whether to address her low progesterone levels and the possibility of a transvaginal ultrasound before her thyroid surgery. Diagnostic Test Results and Labs: - Vitamin D: Low (specific value not documented) - Iodine: 49 (desired levels 60-70) - Calcium: Low (specific value not documented) - Parathyroid Hormone (PTH): Lower than desired (specific value not documented) - Alkaline Phosphatase (ALKFOS): Borderline at 40 - Iron: Borderline (specific value not documented) - Ferritin: Low (specific value not documented) - Progesterone: Low (specific value not documented) - Blood counts: Normal (specific values not documented) Examination Category Sub-Category Detail Notes Category Not es General Examination Neck, thyroid : supple General normal, NAD, well no urished and hydrated, pleasant
--- OUTSIDE RECORDS SUMMARY | 2024-12-25 10:04 | XMS_ITS ---
Author Organization [facility] Address [address] [place] [address] Care Team Providers Care Hosting Engineer Name Role Phone Varsha Steward Primary Care Provider Migration, Provider Unavailable Unavailable REASON FOR VISIT Multum To Medispan Conversion Encounter Medications Medication SIG (Take, Route, Frequency, Duration) Notes Start Date End Date Status Albuterol Sulfate HFA 108 (90 Base) MCG/ACT 2 INH inhaled every 6 hours 08/22/2024 Active Encounters Encounter Location Date Provider Diagnosis [facility] [address] [place] [address] 08/30/2024 Provider Migration Plan Of Treatment No Information Progress Notes * Ellen MANCERADOB:1985 (39 yo F)Acc No.[id number]:08/30/2024 Patient: Ellen FUNEZ Provider: Derrick Bond :1985 A ge:39 Y S ex:Female Date:08/30/2024 Address:[address] [place], [place] [address] Pcp:Varsha Steward Subjective: * Chief Complaints: * 1 . Multum To Medispan Conversion Encounter. * Medical History: * Medications: T aking Albuterol Sulfate HFA 108 (90 Base) MCG/ACT Aerosol Solution 2 INH inhaled every 6 hours Objective: * Vitals: Assessment: Plan: * Treatment: * Billing Information: * Visit Code: * Procedure Codes: * Electronic signature of Prov ider Migration on 12/25/2024 at 10:04 AM CDT Sign off status: Pending * Provider: Derrick Bond Date: 10/30/2023 Generated for Printi ng/Sharda/rGegitting on: 0 12/25/2024 10:04 AM CDT
--- OUTSIDE RECORDS SUMMARY | 2024-12-25 10:04 | XMS_ITS | Clinical Summary ---
Author Organization [facility] Address [facility] [place] [address] Care Team Providers Care Processing Clerk Name Role Phone Rachel De Los Santos HOST/HOSTESS Primary Care Provider [phone] Allergies Active Allergy Reactions Criticality Noted Date Comments Grass Unknown 03/06/2018 Pollen Extract Unknown 03/06/2018 Medications Calcium Citrate-Vitamin D 315-200 MG-UNIT Tab Take 1 tablet by mouth daily. Active Cetirizine HCl (ZYRTEC ALLERGY) 10 MG Cap Take 1 tablet by mouth nightly. Active Vitamin D, Cholecalciferol , 1000 units Cap Take 1 capsule by mouth daily. Active Ferrous Sulfate (IRON HIGH-POTENCY) 325 MG Tab Take 1 tablet by mouth daily. Active fluticasone propionate 50 MCG/ACT nasal spray 2 sprays by Nasal route daily. 03/06/2018 Active Multiple Vitamins tablet Take 1 tablet by mouth daily. Active albuterol sulfate HFA 108 (90 Base) MCG/ACT inhalerIndicati ons:Environment al and seasonal allergies Inhale 2 puffs into the lungs every 6 (six) hours as needed for Wheezing. 18 g 11 11/24/2020 Active montelukast (SINGULAIR) 10 MG tabletIndicatio ns:Environmenta l and seasonal allergies Take 1 tablet (10 mg total) by mouth nightly at bedtime. 90 tablet 3 05/23/2022 Active Active Problems Problem Noted Date Diagnosed Date Obesity (BMI 30.0-34.9) 02/16/2022 COVID-19 vaccine series completed 10/27/2021 Moderate persistent asthma without complication (HHS/HCC) 03/11/2021 Goiter 03/11/2021 Globus sensation 03/11/2021 Hx of bacterial pneumonia 02/09/2021 Vitamin D deficiency 01/11/2021 B12 deficiency 03/18/2018 Increased glucose level 03/14/2018 Anxiety 03/11/2018 Environmental and seasonal allergies 03/11/2018 Abnormal facial hair 03/06/2018 Chronic cough 03/06/2018 Dysmenorrhea 03/06/2018 Pain in joint 03/06/2018 Resolved Problems Problem Noted Date Diagnosed Date Resolved Date Cough 02/09/2021 02/16/2022 Bacterial pneumonia 02/09/2021 02/17/20 22 SOB (shortness of breath) 02/09/2021 Wheezing 11/24/2020 02/16/2022 Acute non-recurrent frontal sinusitis 11/24/2020 02/16/2022 Fatigue 03/06/2018 02/16/2022 Weight gain 03/06/2018 02/16/2022 Immunizations Name Administration Dates Next Due Flucelvax 6 Months+ (Prefilled Syringe) 08/25/20 17 Influenza Adult (Generic) 08/25/2017 PFIZER COVID-19 (ORIGINAL FO RMULATION, PURPLE CAP) mRNA, LNP-S, PF, 30 MCG/0.3 ML DOSE 10/23/2020,10/02/2020 Tdap (Adacel) 02/14/2022 Family History Medical History Relation Comments Cancer Father Thyroid Disease Maternal Grandmother Thyroid Disease Mother Heart Disease Paternal Grandfather Heart Disease Paternal Uncle Relation Status Comments Father (Age 48) Maternal Grandmother Mother Alive Paternal Grandfather Paternal Uncle Social History Tobacco Use Types Packs/Day Years Used Date Smoking Tobacco: Former Cigarettes 0.3 2 Smokeless Tobacco: Never Alcohol Use Standard Drinks/Week Comments Yes 0 (1 standard drink = 0.6 oz pur e alcohol) social PHQ-2 Answer Date Recorded PHQ-2 Score - If the patient scores above 3, please move on to questions 3-9 0 02/04/2021 Comments No Sex and Gender Information Value Date Recorded Sex Assigned at Not on file Legal Sex Female 8:27 PM CDT Gender Identity Not on file Sexual Orientation Not on file Last Filed Vital Signs Vital Sign Reading Time Taken Comments Blood Pressure 110/72 02/14/2022 1:55 PM CDT Pulse 62 02/14/2022 1:55 PM CDT Temperature 36.7 C (98.1 F) 02/14/2022 1:55 PM CDT Respiratory Rate 16 02/14/2022 1:55 PM CDT Oxygen Saturation 100% 02/14/2022 1:55 PM CDT Inhaled Oxygen Concentration - - Weight 77.6 kg (171 lb) 02/14/2022 1:55 PM CDT Height 160 cm (5' 3 ) 02/14/2022 1:55 PM CDT Body Mass Index 30.29 02/14/2022 1:55 PM CDT Plan of Treatment Health Maintenance Due Date Last Done Comments Pneumococcal Vaccine: Pediatrics (0 to 5 Years) and At-Risk Patients (6 to 64 Years) (1 of 2 - PCV) 1990 PHQ-2 (Physician [place]) 1996 Hepatitis C 2002 Hepatitis B Vaccines (1 of 3 - 19+ 3-dose series) 2003 Cervical Cancer Screening Pa p with HPV Testing (Age 30 to 64) Every 5 Years 2014 Annual Physical 01/11/2022 01/11/2021 Cervical Cancer Screening Pa p Smear (Age 30 to 64) Every 3 Years 01/12/2024 01/11/2021 Cervical Cancer Screening wi th HPV 01/12/2024 Mammogram Screening 2024 COVID-19 Vaccine (4 - 2023-2 5 season) 2024 07/22/2021, 10/23/2020, 10/02/2020 Influenza Adult (#1) 2024 08/25/2017, 08/25/2017 PHQ-2 (Physician [place]) 10/15/2024 DTaP, Tdap and Td Vaccines ( 2 - Td or Tdap) 02/15/2032 02/14/2022 HPV Vaccines Aged Out No longer eligi ble based on patient's age to complete this topic Meningococcal B Vaccine Aged Out No l onger eligible based on patient's age to complete this topic Meningococcal Vaccine Aged Out No isai deana eligible based on patient's age to complete this topic RSV Immunizations Under 20 Months Aged Out No longer eligible b ased on patient's age to complete this topic Procedures Procedure Name Priority Date/Time Associated Diagnosis Comments CYTOPATH CERV/VAG THIN LAYER Routine 01/11/2021 4:30 PM CDT Screening for cervical cancer Screening for human papillomavirus (HPV) from Last 3 Months or Most Recently Relevant to Health Maintenance Results * Cytopath Cerv/Vag Thin Layer (01/11/2021 4:30 PM CDT) CLINICAL INFORMATION: Routine exam [facility] Clinical Information: 01/06/2021 [facility] Date of Last Pap INFORMATION NOT PROVIDED [facility] Previous Biopsy? INFORMATION NOT PROVIDED [facility] SOURCE (QST) Cervix, Endocervix [facility] STATEMENT OF ADEQUACY: [facility] Comment: Satisfactory for evaluation. Endocervical/transformation zone component present. PAP INTERPRETATION/RESU LTS Negative for intraepithelial lesion or malignancy. [facility] TAKER OFF BRAKER MACHINE Que [facility] Comment: TMK, CT(ASCP) CT screening location: [place] [address] [place] [address] COMMENT: [facility] Comment: EXPLANATORY NOTE: The Pap is a screening test for cervical cancer. It is not a diagnostic test and is subject to false negative and false positive results. It is most reliable when a satisfactory sample, regularly obtained, is submitted with relevant clinical findings and history, and when the Pap result is evaluated along with historic and current clinical information. 01/11/2021 4:30 PM CDT 01/12/2021 1:42 AM CDT Rachel TANNER PATHOLOGY/CYTOLOGY ORDERABLES Final Result [facility] [address] [place] [address] from Last 3 Months or Most Recently Relevant to Health Maintenance Insurance [employer] Care Teams Processing Clerk Relationship Specialty Start Date End Date Rachel De Los Santos FNP [address] [place] [address] PCP - General NURSE PRACTITIONER 03/08/18
--- OUTSIDE RECORDS SUMMARY | 2024-12-25 10:04 | XMS_ITS | Patient Health Record ---
Author Organization [facility] Address [address] [address] Care Team Providers Care Desk Representative Name Role Phone Varsha Steward Primary Care Provider Migration, Provider Unavailable Unavailable Allergies No Known Allergies Results Component Value Reference Range Notes COMPREHENSIVE METABOLIC PANE L Reviewed date:08/28/2024 09:23:42 AM Interpretation: Performing Lab:[place], [address] [place], [address] Rena Fraire MD Notes/Report: FASTING:YES FASTING: YES IODINE, SERUM/PLASMA Reviewed date:08/31/2024 03:45:46 PM Interpretation: Performing Lab:[facility], [address], [place], [place], Mono Garner M.D.,PhD Notes/Report: FASTING:YES FASTING: YES VITAMIN D, 25-HYDROXY, LC/MS /MS Reviewed date:08/28/2024 07:12:37 PM Interpretation: Performing Lab:[place] [facility], [address], [place], [address] Rena Fraire MD Notes/Report: FASTING:YES FASTING: YES ACTH, PLASMA Reviewed date:09/02/2024 09:27:57 AM Interpretation: Performing Lab:[facility], [address], [place], [place], Mono Garner M.D.,PhD Notes/Report: FASTING:YES FASTING: YES CALCITONIN Reviewed date:09/04/2024 09:24:10 PM Interpretation: Performing Lab:[facility] NEFF[facility],, [address] [place], [address] Brittany Nieves MD,PhD,[place] Notes/Report: FASTING:YES FASTING: YES CALCITONIN <2 < OR = 5 pg/mL This test was performed using the Siemens (DPC) Chemiluminescent method. Values obtained with different assay methods cannot be used interchangeably. Calcitonin levels, regardless of value, should not be interpreted as absolute evidence of the presence or absence of the disease. T3, FREE Reviewed date:08/28/2024 07:08:37 PM Interpretation: Performing Lab:[facility], [address] [place], [address] Rena Fraire MD Notes/Report: FASTING:YES FASTING: YES CORTISOL, TOTAL Reviewed date:08/28/2024 09:22:43 AM Interpretation: Performing Lab:[facility], [address] [place], [address] Rena Fraire MD Notes/Report: FASTING:YES FASTING: YES DHEA SULFATE Reviewed date:08/28/2024 07:12:27 PM Interpretation: Performing Lab:[facility], [address] [place], [address] Rena Fraire MD Notes/Report: FASTING:YES FASTING: YES ESTRADIOL Reviewed date:08/28/2024 07:07:50 PM Interpretation: Performing Lab:[facility], [address] [place], [address] Rena Fraire MD Notes/Report: FASTING:YES FASTING: YES FERRITIN Reviewed date:08/28/2024 07:08:08 PM Interpretation: Performing Lab:[facility], [address] [place], [address] Rena Fraire MD Notes/Report: FASTING:YES FASTING: YES FSH Reviewed date:08/28/2024 07:07:42 PM Interpretation: Performing Lab:[facility], [address] [place], [address] Rena Fraire MD Notes/Report: FASTING:YES FASTING: YES LH Reviewed date:08/28/2024 07:07:35 PM Interpretation: Performing Lab:[facility], [address], [place], [address] Rena Fraire MD Notes/Report: FASTING:YES FASTING: YES MAGNESIUM Reviewed date:08/28/2024 09:23:16 AM Interpretation: Performing Lab:[facility], [address], [place], [address] Rena Fraire MD Notes/Report: FASTING:YES FASTING: YES CBC (INCLUDES DIFF/PLT) Reviewed date:08/28/2024 07:11:28 PM Interpretation: Performing Lab:[facility], [address], [place], [address] Rena Fraire MD Notes/Report: FASTING:YES FASTING: YES VITAMIN B12/FOLATE, SERUM PA ALEXANDRA Reviewed date:08/28/2024 07:08:01 PM Interpretation: Performing Lab:[facility], [address], [place], [address] Rena Fraire MD Notes/Report: FASTING:YES FASTING: YES PROGESTERONE Reviewed date:08/29/2024 03:41:55 PM Interpretation: Performing Lab:[facility], [address], [place], [place], [address] Rena Fraire MD Notes/Report: FASTING:YES FASTING: YES IRON AND TOTAL IRON BINDING CAPACITY Reviewed date:08/28/2024 09:23:25 AM Interpretation: Performing Lab:[facility], [address], [place], [place], [address] Rena Fraire MD Notes/Report: FASTING:YES FASTING: YES LIPID PANEL Reviewed date:08/28/2024 09:23:00 AM Interpretation: Performing Lab:[facility], [address], [place], [address] Rena Fraire MD Notes/Report: FASTING:YES FASTING: YES T4, FREE Reviewed date:08/28/2024 07:07:16 PM Interpretation: Performing Lab:[place], [facility], [address], [place], [address] Rena Fraire MD Notes/Report: FASTING:YES FASTING: YES PTH, INTACT AND CALCIUM Reviewed date:08/28/2024 09:22:51 AM Interpretation: Performing Lab:[place], [facility], [address], [place], [address] Rena Fraire MD Notes/Report: FASTING:YES FASTING: YES TSH Reviewed date:08/28/2024 07:12:00 PM Interpretation: Performing Lab:[place], [facility], [address], [place], [address] Rena Fraire MD Notes/Report: FASTING:YES FASTING: YES TESTOSTERONE, FREE (DIALYSIS ) AND TOTAL,MS Reviewed date:09/04/2024 09:23:04 PM Interpretation: Performing Lab:[facility], [facility], [address] [place] [address], [address], [place], [address] Sarabjit Melendez MD,PhD Notes/Report: FASTING:YES FASTING: YES TESTOSTERONE, TOTAL, MS 20 2-45 ng/dL For additional information, please refer to https://education.[employer].TouchTen/faq/IUF026 (This link is being provided for informational/educational purposes only.) (Note) This test was developed and its analytical performance characteristics have been determined by [employer]. It has not been cleared or approved by the FDA. This assay has been validated pursuant to the CLIA regulations and is used for clinical purposes. TESTOSTERONE, FREE 1.7 0.1-6.4 pg/mL (Note) This test was developed and its analytical performance characteristics have been determined by [employer]. It has not been cleared or approved by the FDA. This assay has been validated pursuant to the CLIA regulations and is used for clinical purposes. [facility] [address] [address],[address] [facility] [address] Sarabjit Melnedez MD, PhD Reason For Referral No Information Medications Medication SIG (Take, Route, Frequency, Duration) Notes Start Date End Date Status Albuterol Sulfate HFA 108 (90 Base) MCG/ACT 2 INH inhaled every 6 hours 08/22/2024 Active Vitamin D (Cholecalciferol) 25 MCG (1000 UT) 1 capsule Orally Once a day Active Problems Problem Type SNOMED Code ICD Code Onset Dates Problem Status W/U Status Risk Notes Problem Vitamin D deficiency (07034544) Vitamin D deficiency, unspecified (E55.9) Active confirmed Problem Non-toxic single thyroid nodule (166818166) Nontoxic single thyroid nodule (E04.1) Active confirmed Problem Irregular menstruation (41202793) Irregular menstruation, unspecified (N92.6) Active confirmed Vital Signs Heart Rate 68 /min 08/22/2024 Blood pressure diastolic 69 mm Hg 08/22/2024 Height 62 in 08/22/2024 Blood pressure systolic 111 mm Hg 08/22/2024 Weight 168.0 lbs 08/22/2024 BMI 30.72 kg/m2 08/22/2024 Encounters Encounter Location Date Provider Diagnosis [facility] [address] [place] [address] 08/30/2024 Provider Migration [facility] [address] [place] [address] 08/22/2024 Varsha tarpipe Nontoxic single thyroid nodule E04.1 ; Irregular menstruation, unspecified N92.6 ; Other fatigue R53.83 ; Vitamin D deficiency, unspecified E55.9 and Encounter for screening for lipoid disorders Z13.220 [facility] [address] [place] [address] 08/29/2024 Varsha Steward [facility] [address] [place] [address] 09/17/2024 Varsha tarpipe Vitamin D deficiency, unspecified E55.9 ; Nontoxic single thyroid nodule E04.1 ; Iron deficiency E61.1 and Other fatigue R53.83 Assessments Encounter Date Diagnosis (ICD Code) Assessment Notes Treatment Notes Treatment Clinical Notes Section Notes 08/22/2024 Nontoxic single thyroid nodule (ICD-10 - E04.1) 08/22/2024 Irregular menstruation, unspecified (ICD-10 - N92.6) 09/17/2024 Vitamin D deficiency, unspecified (ICD-10 - E55.9) 09/17/2024 Nontoxic single thyroid nodule (ICD-10 - E04.1) 08/22/2024 Other fatigue (ICD-10 - R53.83) 09/17/2024 Iron deficiency (ICD-10 - E61.1) 08/22/2024 Vitamin D deficiency, unspecified (ICD-10 - E55.9) 09/17/2024 Other fatigue (ICD-10 - R53.83) 08/22/2024 Encounter for screening for lipoid disorders (ICD-10 - Z13.220) 08/22/2024 Other Assessment and Plan: 1. Thyroid nodule with atypia and compressive symptoms- Continue monitoring the growth of the nodule and plan for removal in March, as per patient's insurance requirements and worsening symptoms- Consult with Dr. Miranda, Usha, and Oniel for surgical options and scheduling- Obtain calcitonin test to assess for C-cell hyperplasia and potential medullary thyroid cancer risk 2. Family history of thyroid cancer- Closely monitor patient's thyroid function and nodule growth due to increased risk of malignancy- Ensure appropriate follow-up with an ambulance driver as recommended by primary care physician and Dr. Garcia 3. Hypothyroidism symptoms with normal thyroid levels- Consider starting the patient on Purely Holistic Thyroid supplement to potentially alleviate symptoms related to iodine deficiency- Monitor patient's response to the supplement and adjust treatment as needed 4. Heavy menstrual periods and headaches- Investigate potential hormonal imbalances by ordering a full hormone panel, including pituitary and adrenal function tests- Follow up with the patient to discuss results and potential treatment options 5. Allergies worsening during menstrual cycle- Assess the need for allergy management during the patient's cycle and consider appropriate treatment options 6. Asthma- Ensure the patient has an inhaler and is using it as needed for wheezing and other asthma symptoms 7. Post-surgical management (if nodule is found to be malignant)- Depending on the type of cancer (follicular or papillary), plan for radioactive iodine therapy six weeks post-surgery to eliminate residual thyroid cells- Initiate treatment to raise TSH above 150 for optimal response to therapy 8. Follow-up- Schedule follow-up appointments in-person or via telehealth, depending on the patient's surgery schedule and availability- Review bloodwork results and discuss any necessary adjustments to the treatment plan Spent 45 minutes preparing to see the patient (ex review of tests/chart), obtaining and / or reviewing separately obtained history, performing a medically appropriate examination and/or evaluation, counseling and educating the patient/family/critical care transport nurse, ordering medications, tests, or procedures, referring and communicating with other health direct care supervisor, documenting clinical information in the electronic or other health record, independently interpreting results and communicating results to the patient/family/critical care transport nurse and care coordinating patient plan. Patient alert and oriented x 4 and aware of discussion noted above and in agreeance to plan in management of thyroid nodule/following up with Dr. Reynoso to discuss partial vs total thyroidectomy (PTH/calcitonin and iodine all ordered), fatigue, irregular menstrual cycles. 09/17/2024 Other Assessment and Plan: 1. Vitamin [...] examination and/or evaluation, counseling and educating the patient/family/critical care transport nurse, ordering medications, tests, or procedures, referring and communicating with other health direct care supervisor, documenting clinical information in the electronic or other health record, independently interpreting results and communicating results to the patient/family/critical care transport nurse and care coordinating patient plan. Patient alert [...] all questions were answered. Plan Of Treatment No Information Insurance Providers Payer Name Payer Address Payer Phone Subscriber Number Group Number Insured Name Patient Relationship to Insured Coverage Start Date Coverage End Date [facility] [address] [place] [address] [phone] [id number] Ellen Mancera Self - patient is the insured Medical (General) History Medical History History ICD Code THYROID NODULE ASTHMA ALLERGIES Surgical History Surgery Date(Month/Year) SINUS SURGRY 2015
--- OUTSIDE RECORDS SUMMARY | 2024-12-25 10:04 | XMS_ITS | Encounter Summary ---
Author Organization [facility] Address [address] [place] [address] Care Team Providers Care Linen Folder Name Role Phone Rachel De Los Santos Primary Care Provider [phone] Encounter Details Date Type Department Care Team (Late st Contact Info) Description 02/08/2022 MyChart Message Enc [facility] Family & Internal Medicine [address] [phone] Rachel De Los Santos FNP [facility] [place] [address] Upcoming appointment but current ear pain Social History Tobacco Use Types Packs/Day Years [...] on file Sexual Orientation Not on file documented as of this encounter Plan of Treatment Not on file documented as of this encounter Visit Diagnoses Not on filedocumented in this encounter Additional Health Concerns Assessment Noted Time PHQ-9 Depression Total Score: 5 02/05/20 21 1:22 PM CDT documented as of this encounter Care Teams Linen Folder Relationship Specialty Start Date End Date Rachel De Los Santos FNP [address] [place] [address] PCP - General NURSE PRACTITIONER 03/08/18 documented as of this encounter
--- OUTSIDE RECORDS SUMMARY | 2024-12-25 10:05 | XMS_ITS | Referral Summary ---
Author Organization [facility] Address [address] [place] [address] Care Team Providers Care Consolidation Accountant Name Role Phone Rachel De Los Santos NP Primary Care Provider Encounters Date Type Department Care Team Description 12/22/2024 12:47 PM CDT - 12/22/2024 11:59 PM CDT Hospital Encounter [facility] [place] [facility] ([facility]) [address] [place] [address] [id number] Thyroid nodule Discharge Disposition: Discharge to home or self care 12/22/2024 2:15 PM CDT Office Visit [facility] Surgery [address] [facility] Floor 5 [place] [address] Adolfo Reynoso MD Thyroid nodule (Primary Dx) from Last 3 Months Allergies Active Allergy Reactions Criticality Noted Date Comments Bee Pollen Unknown 03/06/2018 Grass Pollen Unknown 03/06/2018 Medications cetirizine (ZyrTEC) 1 mg/mL syrup Take by mouth daily Active montelukast (SINGULAIR) 10 mg tablet Take 1 tablet (10 mg total) by mouth nightly Active fluticasone propion-salmete roL (ADVAIR DISKUS) 100-50 mcg/dose diskus inhaler Inhale 1 puff as needed Rinse mouth with water after use. Do not swallow. Active albuterol HFA (PROVENTIL HFA,VENTOLIN HFA,PROAIR HFA) 90 mcg/actuation inhaler Inhale 2 puffs every 6 (six) hours as needed 02/10/202 1 Active calcium citrate-vitamin D3 (CITRACAL+D) 315 mg-5 mcg (200 unit) per tablet Take 1 tablet by mouth daily Active cholecalciferol (VITAMIN D-3) 1,000 unit capsule Take 1 capsule (1,000 Units total) by mouth daily Active ferrous sulfate 325 mg (65 mg of elemental iron) tablet Take 1 tablet (325 mg total) by mouth daily Active fluticasone propionate (FLONASE) 50 mcg/actuation nasal spray Administer 2 sprays into affected nostril(s) as needed 8 Active mometasone 1.2 mg/10 mL solution Add 10 ml of medication to 240 ml of saline in rinse bottle. 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 Chronic sinusitis 08/12/2024 Thyroid nodule 05/21/2023 Assessment & Plan (05/21/2023 8:44 AM CDT): 2 benign cytology Mild obstructive symptoms Patient not interested in intervention and prefers continued surveillance Plan follow up neck US in 1 year Chronic fatigue 05/21/2023 Assessment & Plan (05/21/2023 8:47 AM CDT): Discussed multiple factors Can check CMP, Vit D, Ferritin and TSH Encouraged to discuss with PCP if TFT and Vit D WNL Discussed healthy sleep tips and diet / exercise modifications Resolved Problems Problem Noted Date Diagnosed Date Resolved Date Fatigue 05/21/2023 05/21/2023 Immunizations Immunization Administration Dates Next Due Influenza, Quadrivalent, Zita l Culture-based MDCK, Preservative Free, Antibiotic Free, Intramuscular 08/25/2017 Tdap 02/14/2022 Social History Tobacco Use Types Packs/Day Years Used Date Smoking Tobacco: Never Passive Smoke Exposure: Past Tobacco Cessation:Counseling Given: Not Answered Comments Unknown Sex and Gender Information Value Date Recorded Sex Assigned at Not on file Legal Sex Female 8:19 AM CDT Gender Identity Not on file Sexual Orientation Not on file Last Filed Vital Signs Vital Sign Reading Time Taken Comments Blood Pressure 102/62 12/22/2024 2:15 PM CDT Pulse 70 12/22/2024 2:15 PM CDT Temperature 36.8 C (98.3 F) 12/22/2024 2:15 PM CDT Respiratory Rate 18 12/22/2024 2:15 PM CDT Oxygen Saturation 100% 12/22/2024 2:15 PM CDT Inhaled Oxygen Concentration - - Weight 73.8 kg (162 lb 12.8 oz) 12/22/2024 2:15 PM CDT Height 157.5 cm (5' 2.01 ) 03/27/2024 1:35 PM CD T Body Mass Index 29.77 03/27/2024 1:35 PM CDT Plan of Treatment Upcoming Encounters Date Type Department Care Team (Latest Contact Info) Description 01/20/2025 7:30 AM CDT Hospital Encounter [facility]) [address] [place] [address] [place] [address] [place] [address] 01/20/2025 7:30 AM CDT - 01/20/2025 9:55 AM CDT Surgery [facility]) [address] [place] [address] Adolfo Reynoso MD [facility] [place] [address] LOBECTOMY - THYROID Scheduled Procedures Name Priority Associated Diagnoses Date/Ti me LOBECTOMY - THYROID Thyroid nodule 01/20/2025 7:30 AM CDT Procedures Procedure Name Priority Date/Time Associated Diagnosis Comments US SOFT TISSUE NECK Schedule Routine, Read Routine (OP Routine) 12/22/2024 1:07 PM CDT Thyroid nodule from Last 3 Months Results * US Soft Tissue Neck (12/22/2024 1:07 PM CDT) Anatomical Region Laterality Modality Head and Neck N/A Ultrasound 12/22/2024 1:12 PM CDT Impressions 12/22/2024 1:12 PM CDT Unchanged left thyroid nodule, previously biopsied with low risk for malignancy. Electronically signed by: Candido Perdomo M.D. Narrative 12/22/2024 1:12 PM CDT EXAMINATION: THYROID SONOGRAM HISTORY: Thyroid nodule follow-up COMPARISON: 03/27/2024 FINDINGS: The left thyroid lobe is enlarged. Size right lobe: 4.4 cm craniocaudal, 1.5 cm transverse, 1.2 cm AP. Size left lobe: 5.8 cm craniocaudal, 3.1 cm transverse, 2.4 cm AP. Size isthmus: 0.3 cm AP. Nodule 1: Location: Left mid . Size: 5 cm craniocaudal x . 3.7 cm transverse x 2 cm AP (previously 4.8 cm craniocaudal x 3.4 cm transverse x 1.7 cm AP) Maximum Size: 5 cm Composition: Solid/almost completely solid Echogenicity: Hypoechoic Shape: Not taller than wide Margins: Smooth Echogenic foci: Punctate echogenic foci Follow-up details: Prior biopsy: 04/10/2023; atypia of undetermined significance, with ThyroSeq negative for genetic alterations Significant change in size (>/= 20% in two dimensions and minimal increase of 2 mm): No Change in features: No Procedure Note Candido Perdomo MD - 12/22/2024 EXAMINATION: THYROID SONOGRAM HISTORY: Thyroid nodule follow-up COMPARISON: 03/27/2024 FINDINGS: The left thyroid lobe is enlarged. Size right lobe: 4.4 cm craniocaudal, 1.5 cm transverse, 1.2 cm AP. Size left lobe: 5.8 cm craniocaudal, 3.1 cm transverse, 2.4 cm AP. Size isthmus: 0.3 cm AP. Nodule 1: Location: Left mid . Size: 5 cm craniocaudal x . 3.7 cm transverse x 2 cm AP (previously 4.8 cm craniocaudal x 3.4 cm transverse x 1.7 cm AP) Maximum Size: 5 cm Composition: Solid/almost completely solid Echogenicity: Hypoechoic Shape: Not taller than wide Margins: Smooth Echogenic foci: Punctate echogenic foci Follow-up details: Prior biopsy: 04/10/2023; atypia of undetermined significance, with ThyroSeq negative for genetic alterations Significant change in size (>/= 20% in two dimensions and minimal increase of 2 mm): No Change in features: No IMPRESSION: Unchanged left thyroid nodule, previously biopsied with low risk for malignancy. Electronically signed by: Candido Perdomo M.D. Adolfo Reynoso MD [facility] PROCEDURES Final Result from Last 3 Months Insurance [facility] Address: [address] [facility] Address: [place] [address] [facility] Address: [address] [address] Care Teams Consolidation Accountant Relationship Specialty Start Date End Date Rachel De Los Santos NP [address] [place] [address] PCP - General Nurse Practitioner 03/18/21
--- OUTSIDE RECORDS SUMMARY | 2024-12-25 10:05 | XMS_ITS | Encounter Summary ---
Author Organization [facility] Address [address] [place] [address] Care Team Providers Care Greenhouse Manager Name Role Phone Rachel De Los Santos Primary Care Provider [phone] Encounter Details Date Type Department Care Team (Late st Contact Info) Description 10/26/2021 MyChart Message Enc [facility] Family & Internal Medicine [address] [address] Rachel De Los Santos FNP [facility] [place], [place] [id number] Feeling ill Social History Tobacco Use Types Packs/Day Years [...] on file Sexual Orientation Not on file COVID-19 Exposure Response Date Recorded In the last month, have you been in contact with someone who was confirmed or suspected to have Coronavirus / COVID-19? No / Unsure 10/26/2021 4:05 PM CAR HOPPER documented as of this encounter Plan of Treatment Not on file documented as of this encounter Visit Diagnoses Not on filedocumented in this encounter Additional Health Concerns Infection Onset Date Last Indicated Resolved Time COVID-19 Rule Out 10/27/2021 10/27/2021 10/27/2021 4:28 PM CAR HOPPER Assessment Noted Time PHQ-9 Depression Total Score: 5 02/05/20 21 1:22 PM CDT documented as of this encounter Care Teams Greenhouse Manager Relationship Specialty Start Date End Date Rachel De Los Santos FNP [address] [place] [address] PCP - General NURSE PRACTITIONER 03/08/18 documented as of this encounter
--- OUTSIDE RECORDS SUMMARY | 2024-12-25 10:05 | XMS_ITS ---
Author Organization [employer] [place] Address [address] [place] [address] Care Team Providers Care Wax Ball Knock Out Worker Name Role Phone Varsha Steward Primary Care Provider Encounters Encounter Location Date Provider Diagnosis [facility] - Varsha Steward [address] [place] [address] 08/29/2024 Varsha Steward Plan Of Treatment No Information Progress Notes * Ellen URIBEDOB:1985 (39 yo F)Acc No.[id number]:08/29/2024 Patient: Ellen FUNEZ :1985 A ge:39 Y S ex:Female Address:[address] [place] [address] [place], [address] * true * Date: Generated for Gilbertoi luis f/Sharda/eTransmitting on: 0 12/25/2024 10:04 AM CDT
--- OUTSIDE RECORDS SUMMARY | 2024-12-25 10:05 | XMS_ITS | Clinical Summary ---
Author Organization [facility] Address [address] [place] [address] Care Team Providers Care Foil Cutter Name Role Phone Rachel De Los Santos NP Primary Care Provider [phone] Allergies Active Allergy Reactions Criticality Noted Date [...] puffs every 6 (six) hours as needed 1 Active calcium citrate-vitamin D3 (CITRACAL+D) 315 [...] Diagnosed Date Resolved Date Fatigue 05/21/2023 05/21/2023 Encounters Date Type Department Care Team Description 12/22/2024 2:15 PM CDT Office Visit [facility] Surgery [address] [facility] Floor 5 [place] [address] Adolfo Reynoso MD Thyroid nodule (Primary Dx) 12/22/2024 12:47 PM CDT - 12/22/2024 11:59 PM CDT Hospital Encounter [facility]) [address] [place] [address] Thyroid nodule Discharge Disposition: Discharge to home or self care from Last 3 Months Immunizations Immunization Administration Dates Next Due Influenza, Quadrivalent, Zita l Culture-based MDCK, Preservative Free, Antibiotic Free, Intramuscular 08/25/2017 Tdap 02/14/2022 Surgical History Surgery Date Site/Laterality Comments SINUS SURGERY Medical History Medical History Date Comments Thyroid disease Allergic rhinitis 2012 Sinusitis 2015 Headache Asthma 2014 Substance abuse (HCC) Family History Medical History Relation Name Comments Cancer Father Marizol Mancera Lung cancer Father Marizol Mancera Thyroid disease Maternal Grandmother Sofy Mcintyre Thyroid disease Mother Olivier Carias Thyroid disease Sister Hilary Mancera Relation Name Status Comments Father Marizol Mancera Maternal Grandmother Sofy Mcintyre Mother Olivier Laurentnder Sister Hilary Mancera Social History Tobacco Use Types Packs/Day Years Used Date Smoking Tobacco: Never Passive Smoke Exposure: Past Tobacco Cessation:Counseling Given: Not Answered Comments Unknown Sex and Gender Information Value Date Recorded Sex Assigned at Not on file Legal Sex Female 8:19 AM CDT Gender Identity Not on file Sexual Orientation Not on file Obstetrics History Last Filed Vital Signs Vital Sign Reading [...] Description 01/20/2025 7:30 AM CDT Hospital Encounter [facility]) [address] [place] [address] Adolfo Reynoso MD [address] [place] [address] 01/20/2025 7:30 AM CDT - 01/20/2025 9:55 AM CDT Surgery [facility]) [address] [place] [address] Adolfo Reynoso MD [address] [place] [address] LOBECTOMY - THYROID Scheduled Procedures Name Priority Associated Diagnoses Date/Ti me LOBECTOMY - THYROID Thyroid nodule 01/20/2025 7:30 AM CDT Health Maintenance Due Date Last Done Comments Breast Cancer Screening-Mammogram 1984 Depression Screening 1984 Hepatitis C Screening 1984 Varicella Vaccines (1 of 2 - 13+ 2-dose series) 1997 Hepatitis B Screening 2002 Regular Well Visit/Exam 18-64 2002 Pneumococcal vaccine <65 (1 of 2 - PCV) 2003 Cervical Cancer Screening 01/11/2022 01/11/2021 Covid-19 Vaccine (3 - 2023-2 5 season) 2024 10/23/2020, 10/02/2020 Influenza Vaccine (#1) 2024 08/25/2017 DTaP/Tdap/Td Vaccine (2 - Td or Tdap) 02/15/2032 02/14/2022 HPV [...] by: Candido Perdomo M.D. Adolfo Reynoso MD [facility] US PROCEDURES Final Result from Last 3 Months Insurance [facility] [id number] [place] [address] Care Teams Foil Cutter Relationship Specialty Start Date End Date Rachel De Los Santos NP [address] [place] [address] PCP - General Nurse Practitioner 03/18/21
== END 2024-12-25 09:07 | disposition home or self-care (01) ==
LOC: ANHIMG 09:08
PROVIDERS: PCP Clinical Nurse Specialist; Visit Provider Clinical Nurse Specialist
DX: Z12.31 Encounter for screening mammogram for malignant neoplasm of breast (principal)
CPT/HCPCS: 77063; 77067

== ENCOUNTER 2025-08-12 10:26 | Outpatient (CLI) | payer OTHER, SELFPAY ==
--- OUTSIDE RECORDS SUMMARY | 2021-07-20 04:00 | XMS_ITS | Continuity of Care Document ---
Author Organization [facility] Address [address] [place] [address] Phone Care Team Providers Care Environmental Sustainability Manager Name Role Phone Unavailable Unavailable Unavailable Allergies, Adverse Reactions, Alerts Substance Reaction Status Criticality NITROFURANTOIN MACROCRYSTALLINE Active No Information nitrofurantoin Active No Informatio n heparin Active No Information ciprofloxacin Active No Information nut - unspecified Active No Informa tion Medications Medication Instructions Dosage Effective Dates (start - stop) Status Comments losartan 100 mg-hydrochlorothiazi de 12.5 mg tablet take 1 tablet by oral route every day 1.00 tablet - Active WOMEN'S MULTIVITAMIN (unknown strength) one tablet per day Not Available - Active VITAMIN B-12 (unknown strength) take 1 capsule by oral route every day Not Available - Active CALCIUM CITRATE (unknown strength) one tablet per day Not Available - Active BIOTIN (unknown strength) one tablet per day Not Available - Active methocarbamol 500 mg tablet take one tablet as needed for muscle spasms - Active ergocalciferol (vitamin D2) 1,250 mcg (50,000 unit) capsule take 1 capsule by oral route every month 14363 UNITS - Active losartan 50 mg-hydrochlorothiazi de 12.5 mg tablet take 1 tablet by oral route every day 1.00 tablet - No Longer Active Procedures Procedure Date NEW PATIENT VISIT ELECTROCARDIOGRAM COMPLETE Advance Directives Directive Yes / No Effective Date File Name No Information Encounters Encounter Description Practice Location Reason(s) For Visit Diagnoses Date Provider Providers Copied on Encounter NEW PATIENT VISIT [facility], [address] [facility] [address], [place], [id number], [place] tel:[phone] [address] [place] Hypertension (chief complaint) Essential (primary) hypertensionB juan c mass index [BMI] 37.0-37.9, adult Oct-0 1 No Information Referring Provider: Driss Walters, [address] [facility] [address], [place], [address]. tel:[phone] [facility], [address] [facility] [address] [facility] [address], [place], [id number], tel:[phone] [address] [place] No Information 1 No Information Family History Family Member Type Diagnosis Age At Onset Mother Problem (finding) High Blood Pressure Mother Problem (finding) Stroke Maternal aunt Problem chf Payers Payer name Insurance type Covered alliance party ID Authoriza tion(s) BCBS PPO Other State [place] F[place] [id number] 1 Social History Type Description Quantity Date Captured Comments Alcohol Use Details Caffeine Use Details and coffee Tobacco Use Status Current non-smoker Smoking Status Never smoker Non-Smoking Tobacco Use Details : No Details Available : No Details Available Sex Female Vital Signs Date / Time: Height Weight BMI Pulse Rate Blood Pressure Temperature Respiratory Rate Body Surface Area Head Circumference Head Circ. Percentile Wt./Rod. Percentile BMI percentile Pulse Ox Inhaled Ox 9:23 AM 62.00 in 92.533 kg (204.00 lbs) 37.3 1 kg/m eter (2) 73 /min 130/90 mm[Hg] 18 /min 99 % Chief Complaint And Reason For Visit From encounter dated '07/20/2021 09:00'. Hypertension (chief complaint) Reason For Referral Reason For Referral No Information Plan Of Treatment Date Type Action Status Goal Dietary management education , guidance, and counseling completed History Of Present Illness Encounter Date Complaint History Of Prese nt Illness Hypertension Functional Status Date Functional Assessmen t No Information Instructions Date Instruction Additional Infor kenny Dietary management e ducation, guidance, and counseling Related to Body mass index [BMI] 37.0-37.9, adult Assessments Type Assessment Date No Information Patient Care Teams Name Effective Dates (start - stop) Status Members No Information
--- OUTSIDE RECORDS SUMMARY | 2025-08-12 11:39 | XMS_ITS | Encounter Summary ---
Author Organization [facility] Address [address] [place] [address] Care Team Providers Care Software Design Engineer Name Role Phone Rachel De Los Santos Primary Care Provider [phone] Encounter Details Date Type Department Care Team (Late st Contact Info) Description 02/08/2022 MyChart Message Enc [facility] Family & Internal Medicine [address] [phone] Rachel De Los Santos FNP [facility] [place] [address] Upcoming appointment but current ear pain Social [...] documented as of this encounter Care Teams Software Design Engineer Relationship Specialty Start Date End Date Rachel De Los Santos FNP [address] [place] [address] PCP - General NURSE PRACTITIONER 03/08/18 documented as of this encounter
--- OUTSIDE RECORDS SUMMARY | 2025-08-12 11:39 | XMS_ITS | Clinical Summary ---
Author Organization [facility] Address [address] [place] [address] Care Team Providers Care Teaching Dietitian Name Role Phone Elizabet Davalos NP Primary Care Provider [phone] Allergies Active Allergy Reactions Criticality Noted Date Comments Bee Pollen Unknown 03/06/2018 Grass Pollen Unknown 03/06/2018 Medications cetirizine HCl (CETIRIZINE ORAL)Indication s:Seasonal Allergic Rhinitis Take 1 tablet by mouth every morning Active montelukast (SINGULAIR) 10 mg tabletIndicatio ns:Maintenance Therapy for Asthma Take 1 tablet (10 mg total) by mouth nightly Active fluticasone propion-salmete roL (ADVAIR DISKUS) 100-50 mcg/dose diskus inhalerIndicati ons:wheezing Inhale 1 puff as needed (asthma) Rinse mouth with water after use. Do not swallow. Active albuterol HFA (PROVENTIL HFA,VENTOLIN HFA,PROAIR HFA) 90 mcg/actuation inhalerIndicati ons:Acute Asthma Attack Inhale 2 puffs as needed for wheezing or shortness of breath 1 Active calcium citrate-vitamin D3 (CITRACAL+D) 315 mg-5 mcg (200 unit) per tabletIndicatio ns:Vitamin D Deficiency Take 1 tablet by mouth every morning Active ferrous sulfate 325 mg (65 mg of elemental iron) tabletIndicatio ns:Iron Deficiency Anemia Take 1 tablet (325 mg total) by mouth every morning Active fluticasone propionate (FLONASE) 50 mcg/actuation nasal sprayIndication s:Allergic Conjunctivitis, Allergic Rhinitis Administer 2 sprays into affected nostril(s) as needed for rhinitis or allergies 8 Active mometasone 1.2 mg/10 mL solution Add 10 ml of medication to 240 ml of saline in rinse bottle. Irrigate sinuses with 120 ml each nostril twice a day 600 mL 6 4 Active Additional Information Patient taking differently: 10 mL each nostril 2 times daily, Add 10 ml of medication to 240 ml of saline in rinse bottle. Irrigate sinuses with 120 ml each nostril twice a day, Indications: nasal rinse, Informant: Self, Reported on 02/05/2025 ibuprofen 200 mg tab/capIndicati ons:Pain Take 3 tablet/capsule (600 mg total) by mouth as needed for pain Active oxyCODONE (ROXICODONE) 5 mg immediate release tabletIndicatio ns:Pain Take 1 tablet (5 mg total) by mouth every 6 (six) hours as needed for pain 10 tablet 5 Active Active Problems Problem Noted Date Diagnosed [...] Olivier Carias Thyroid disease Sister Hilary Mancera Anesthesia problems Neg Hx Relation Name Status Comments Father Marizol Mancera Maternal Grandmother Sofy Mcintyre Mother Olivier Carias Sister Hilary Mancera Social History Tobacco Use Types Packs/Day Years Used Date Smoking Tobacco: Former Cigarettes 0.1 2 1 998 - 1999 Passive Smoke Exposure: Past Tobacco Cessation:Counseling Given: Not Answered Comments:Smoked socially- 3 cigs a month AUDIT-C Answer Date Recorded Q1: How often do you have a drink containing alc ohol? Monthly or less 01/20/2025 Q2: How many drinks containi ng alcohol do you have on a typical day when you are drinking? 1 or 2 01/20/2025 Q3: How often do you have si x or more drinks on one occasion? Less than monthly 01/20/2025 Personal Safety Answer Date Recorded Have you ever been in or are you currently in a harmful physical or emotional relationship or is someone making you feel afraid or unsafe? Denies 01/20/2025 Comments No Sex and Gender Information Value Date Recorded Sex Assigned at Not on file Legal Sex Female 8:19 AM CDT Gender Identity Not on file Sexual Orientation Not on file Obstetrics History Last Filed Vital Signs Vital Sign Reading Time Taken Comments Blood Pressure 110/72 02/05/2025 3:32 PM CDT Pulse 66 02/05/2025 3:32 PM CDT Temperature 36.4 C (97.5 F) 01/20/2025 2:35 PM CDT Respiratory Rate 18 02/05/2025 3:32 PM CDT Oxygen Saturation 100% 02/05/2025 3:32 PM CDT Inhaled Oxygen Concentration - - Weight 77.1 kg (170 lb) 02/05/2025 3:32 PM CDT Height 157.5 cm (5' 2) 01/20/2025 11:19 AM CDT Body Mass Index 31.09 01/20/2025 11:19 AM CDT Plan of Treatment Health Maintenance Due Date Last Done Comments Breast Cancer Screening-Mammogram 1984 Depression Screening 1984 Hepatitis C Screening 1984 Varicella Vaccines (1 of 2 - 13+ 2-dose series) 1997 Hepatitis B Screening 2002 Regular Well Visit/Exam 18-64 2002 Pneumococcal vaccine <65 (1 of 2 - PCV) 2003 HPV Vaccines (1 - 3-dose SCDM series) 2011 Cervical Cancer Screening 01/11/2022 01/11/2021 Covid-19 Vaccine ( - season) 06/15/202506/2021, 10/02/2020 Influenza Vaccine (#1) 2025 08/25/2017 DTaP/Tdap/Td Vaccine (2 - Td or Tdap) 02/15/203212/[address] [facility] Advance Directives For more information, please contact: [phone] * Full Code (Latest Code Status on File) Date Activated Date Inactivated Comments 01/20/2025 11:18 AM 01/20/2025 8:49 PM Care Teams Teaching Dietitian Relationship Specialty Start Date End Date Elizabet Davalos NP [facility] [address] [address] PCP - General Cardiovascular Disease 01/07/25
--- OUTSIDE RECORDS SUMMARY | 2025-08-12 11:39 | XMS_ITS | Clinical Summary ---
Author Organization [facility] Address [facility] [place] [address] Care Team Providers Care Foundry Metallurgist Name Role Phone Rachel De Los Santos MAT ROLLER Primary Care Provider [phone] Allergies Active Allergy Reactions Criticality Noted Date [...] completed 10/27/2021 Moderate persistent asthma without complication 03/11/2021 Goiter 03/11/2021 Globus sensation 03/11/2021 Hx [...] 03/06/2018 02/16/2022 Weight gain 03/06/2018 02/16/2022 Immunizations Immunization Administration Dates Next Due Flucelvax 6 Months+ [...] 1:55 PM CDT Height 160 cm (5' 3) 02/14/2022 1:55 PM CDT Body Mass Index 30.29 02/14/2022 1:55 PM CDT Plan of Treatment Health Maintenance Due Date Last Done Comments Hepatitis C 2002 Hepatitis B Vaccines (1 of 3 - 19+ 3-dose series) 2003 Pneumococcal Vaccine: Pediatrics (0 to 5 Years) and At-Risk Patients (6 to 49 Years) (1 of 2 - PCV) 2003 HPV Vaccines (1 - 3-dose SCD M series) 2011 Cervical Cancer Screening Pa p with HPV Testing (Age 30 to 64) Every 5 Years 2014 Annual Physical 01/11/2022 01/11/2021 Cervical Cancer Screening Pa p Smear (Age 30 to 64) Every 3 Years 01/12/2024 01/11/2021 Cervical Cancer Screening wi th HPV 01/12/2024 Mammogram Screening 2024 PHQ-2 (Physician [place]) 10/15/2024 COVID-19 Vaccine (2024-2 6 season) 2025 07/22/2021, 10/23/2020, 10/02/2020 Influenza Adult (#1) 2025 08/25/2017, 08/25/2017 DTaP, Tdap and Td Vaccines ( 2 - Td or Tdap) 02/15/2032 02/14/2022 Hepatitis A Vaccines Aged Out No long er eligible based on patient's age to complete [...] 4:30 PM CDT) CLINICAL INFORMATION: Routine exam [facility] Clinical Information: 01/06/2021 [facility] Date of Last Pap INFORMATION NOT PROVIDED [facility] Previous Biopsy? INFORMATION NOT PROVIDED [facility] SOURCE (QST) Cervix, Endocervix [facility] STATEMENT OF ADEQUACY: [facility] Comment: Satisfactory for evaluation. Endocervical/transformation zone component present. PAP INTERPRETATION/RESU LTS Negative for intraepithelial lesion or malignancy. [facility] COAT PRESSER [facility] Comment: TMK, YOGESH(ASCP) CT screening location: [place] [address] [place] [address] COMMENT: [facility] Comment: EXPLANATORY NOTE: The Pap is a [...] CDT Rachel TANNER PATHOLOGY/CYTOLOGY ORDERABLES Final Result [facility] [address] [place] [address] from Last 3 Months or Most Recently Relevant to Health Maintenance Insurance [employer] Care Teams Foundry Metallurgist Relationship Specialty Start Date End Date Rachel De Los Santos FNP [address] [place] [address] PCP - General NURSE PRACTITIONER 03/08/18
--- OUTSIDE RECORDS SUMMARY | 2025-08-12 11:39 | XMS_ITS | Encounter Summary ---
Author Organization [facility] Address [address] [place] [address] Care Team Providers Care Manager Research Name Role Phone Rachel De Los Santos Primary Care Provider [phone] Encounter Details Date Type Department Care Team (Late st Contact Info) Description 10/26/2021 MyChart Message Enc [facility] Family & Internal Medicine [address] [address] Rachel De Los Santos FNP [facility] [place], [place] [id number] Feeling ill Social History Tobacco Use Types [...] COVID-19? No / Unsure 10/26/2021 4:05 PM TRAILHEAD MAINTENANCE WORKER documented as of this encounter Plan of Treatment Not on file documented as of this encounter Visit Diagnoses Not on filedocumented in this encounter Additional Health Concerns Infection Onset Date Last Indicated Resolved Time COVID-19 Rule Out 10/27/2021 10/27/2021 10/27/2021 4:28 PM TRAILHEAD MAINTENANCE WORKER Assessment Noted Time PHQ-9 Depression Total Score: 5 02/05/20 21 1:22 PM CDT documented as of this encounter Care Teams Manager Research Relationship Specialty Start Date End Date Rachel De Los Santos FNP [address] [place] [address] PCP - General NURSE PRACTITIONER 03/08/18 documented as of this encounter
--- OUTSIDE RECORDS SUMMARY | 2025-08-12 11:39 | XMS_ITS | Data Portability ---
Author Organization [facility] Address [address] [place] [address] [place] [address] Assessment No assessment recorded. Plan of Treatment Reminders Order Date Submit Date Provider Last Modified By Organization Details Last Modified Time Details Appointments None recorded. Lab test, urine 2022 023 [email or web address] [address] [place], [address], [place], [address], 14:41:38 urinalysis , dipstick 2022 023 [email or web address] 1 [address], [address], [place], [address], 14:43:09 Referral None recorded. Procedures None recorded. Surgeries None recorded. Imaging None recorded. Medication Orders None recorded. Patient TargetsNo targets recorded. Patient InstructionsNo instructions recorded. Reason for Referral None Reported. Results Created Date Observation Date Name Description Value Unit Range Abnormal Flag Note LastModifiedBy Organization Detail LastModifiedTime 07/31/20 23 07/31/2023 IMAGE GUIDE D PAP AND HPV REGAR DLESS image guided Pap, HPV regardless of Pap result SEE RESULT S BELOW CASE REPOR T: Cytol ogy Gynec ologi troy Repor t Case: [id number] Autho lili g Provi keya: Rosa Guzmán, JORGE Colle cted: 07/31 1628 Order ing Locat ion: [place] [facility] Recei anival: 08/01 0154 First Scree n: DeLuc a, Kasia, CT Rescr een: Jackelyn wadsworth, Zaynab mono, CT Speci men: Scree nelson Pap - Image d, Cervi x STATE MENT OF ADEQU ACY: Satis facto ry for evalu ation Trans forma tion zone compo nent prese nt FINAL DIAGN OSIS: Negat kelin for Intra epith elial Lesio n or Arabella shania (NIL) . Elect kaylen vernon jazmine d by Jackelyn wadsworth, Zaynab moon, CT on 08/02 at 10:20 PM ----- ----- ----- ----- ----- ----- ----- ----- ----- ----- ----- ----- ----- ----- ----- ----- ----- ---- HPV RESUL TS: HPV mRNA E6/E7 : No HPV mRNA Detec florinda NOTE: This high risk HPV mRNA assay detec ts fourt een high- risk HPV types (16, 18, 31, 33, 35, 39, 45, 51, 52, 56, 58, 59, 66, 68) witho ut diffe renti ation . COMME NT: This speci men was revie wed by a Cytot echno logis t and/o r Patho logis t (as indic ated in this repor t) after evalu ation using the Thinp rep Imagi ng Syste m. CLINI TROY INFOR MATIO N: Menst rual Statu s: LMP (if appli cable ): Clini troy Histo ry/Pr eviou s Pap: Type of Neopl marleny (if appli cable ): Signi fican t Clini troy Findi ngs: Other Histo ry: Hormo natalie (if appli cable ): PAP EDUCA NESSA L NOTE: The Pap Test is a scree nelson test with an inher ent false negat kelin rate. Liqui d-bas ed sampl ing may decre ase, but will not elimi lexii, false negat kelin resul ts. A negat kelin resul t does not precl ude the prese nce and/o r devel opmen t of disea se, since the prese nce of abnor mal cells in the sampl e depen ds on the locat ion of the lesio n and sampl ing techn ique. Eulalio nued regul ar scree nelson is the best metho d of cance r preve ntion . If repor florinda cytol ogic findi ng do not corre late with physi troy and/o r histo rical findi ngs, furth er inves tigat ion is recom faye d, as clini pedro luis young nted. Not Available [facility] (Lab) [address], [place], [address], 08/02/2023 23:23:07 07/31/2007/31/2023 urina lysis , dipst ick Leukocytes normal Not Available [facility] [address], [place], [address], 07/31/2023 14:42:13 07/31/2007/31/2023 urina lysis , dipst ick Nitrite normal Not Available [place] [address], [place], [address], 07/31/2023 14:42:13 07/31/2007/31/2023 urina lysis , dipst ick Urobilinogen normal Not Available [facility] [address], [place], [address], 07/31/2023 14:42:13 07/31/2007/31/2023 urina lysis , dipst ick Protein trace Not Available [place] [address], [place], [address], 07/31/2023 14:42:13 07/31/2007/31/2023 urina lysis , dipst ick pH 8 Not Available [place] [address], [place], [address], 07/31/2023 14:42:13 07/31/2007/31/2023 urina lysis , dipst ick Specific [place] 1.020 Not Available Timo mcclellan [address], [place], [address], 07/31/2023 14:42:13 07/31/2007/31/2023 urina lysis , dipst ick Ketone normal Not Available [place] [address], [place], [address], 07/31/2023 14:42:13 07/31/2007/31/2023 urina lysis , dipst ick Bilirubin normal Not Available [place] [address], [place], [address], 07/31/2023 14:42:13 07/31/2007/31/2023 urina lysis , dipst ick Glucose normal Not Available [place] [address], [place], [address], 07/31/2023 14:42:13 07/31/2007/31/2023 urina lysis , dipst ick Appearance normal Not Available [facility] [address], [place], [address], 07/31/2023 14:42:13 07/31/2007/31/2023 urina lysis , dipst ick Color normal Not Available [place] [address], [place], [address], 07/31/2023 14:42:13 07/31/2007/31/2023 pregn grisel test, urine HCG negati ve Not Available [place] [address], [place], [address], 07/31/2023 14:40:37 Result Notes None recorded. Procedures Surgical History Date Name Laterality Status Provider Name and Address Organization Details Recorded Time 10/17/202 3 Date of Last Pap Smear completed Tiffanie Duarte [facility] 07/31/2023 14:33:55 5 Nsl/sins ndsc surg bx polypc completed Tiffanie Duarte [facility] 07/31/2023 14:37:34 Imaging Results None recorded. Procedure Notes None recorded. Medical Equipment None Reported. Allergies No known drug allergies Vitals Date Recorded Body height Body mass index (BMI) Body weight Systolic And Diastolic Provider Name and Address Organization Details Last Updated DateTime 07/31/2023 160.66 cm 29.2 kg/m2 86524.33 g 120/78 mm[Hg] Tiffanie Duarte [facility] 07/31/2023 14:33:36 Social History Question Answer Notes LastModified by Organizat ion Details LastModified Time Tobacco Smoking Status Former Smoker Tiffanie Duarte [facility], [facility] 07/31/2023 14:36:56 Are You Blind Or Do You Have Difficulty Seeing? No [email or web address] Information n ot available 07/31/2023 What Is Your Level Of Caffeine Consumption? Moderate [email or web address] Information not available 07/31/2023 In The 14 Days Before Symptom Onset, Have You Had Close Contact With A Laboratory-confirm ed COVID-19 While That Case Was Ill? No [email or web address] Information n ot available 07/31/2023 In The 14 Days Before Symptom Onset, Have You Had Close Contact With A Person Who Is Under Investigation For COVID-19 While That Person Was Ill? No [email or web address] Information not available 07/31/2023 Have You Been To An Area Known To Be High Risk For COVID-19? No Information not available 07/31/2023 Are You Deaf Or Do You Have Serious Difficulty Hearing? No [email or web address] Information not available 07/31/2023 What Type Of Diet Are You Following? REGULAR [email or web address] Information n ot available 07/31/2023 Have You Ever Been Counseled For Unhealthy Alcohol Use? No Information not available 07/31/2023 Do You Have Smoke And Carbon Monoxide Detectors In Your Home? Yes [email or web address] Information not available 07/31/2023 Do You Use Sunscreen Routinely? Yes [email or web address] Information not available 07/31/2023 Has Tobacco Cessation Counseling Been Provided? No Information not available 07/31/2023 Do You Have Difficulty Walking Or Climbing Stairs? No [email or web address] Information not available 07/31/2023 Sex: Unknown Functional Status Question Answer Note LastModified by Organizat ion Details LastModified Time Do you use any illicit or recreational drugs? No [email or web address] Information not available 07/31/2023 Do you or have you ever used any other forms of tobacco or nicotine? No [email or web address] Information not available 07/31/2023 What is your level of alcohol consumption? Occasional [email or web address] Information not available 07/31/2023 Are you able to walk independently without assistance or assistive devices? YESWOREST [email or web address] Information not available 07/31/2023 Are you able to care for yourself independently? Yes Information not available 07/31/2023 Do you have difficulty dressing, bathing, grooming, or toileting? No [email or web address] Information not available 07/31/2023 What is your exercise level? Occasional [email or web address] Information not available 07/31/2023 Mental Status Question Answer Note LastModified by Organization D etails LastModified Time Do you feel stressed (tense, restless, nervous, or anxious, or unable to sleep at night)? [id number] [email or web address] Information not available 07/31/2023 Family History Relationship Description Onset Age of this Age Resolved Age Notes LastModified by Organization Details LastModified Time Maternal Grandfather Heart disease [email or web address] Not available 07/31 18:45:00 Father Malignant neoplasm of lung [email or web address] Not available 07/31 18:45:10 Mother Mental disorder [email or web address] Not available 07/31 18:45:39 Mother Disorder of thyroid gland [email or web address] Not available 07/31 18:46:09 Sister Mental disorder [email or web address] Not available 07/31 18:45:39 Sister Disorder of thyroid gland [email or web address] Not available 07/31 18:46:09 Maternal Grandmother Disorder of thyroid gland [email or web address] Not available 07/31 18:46:09 Medical History Condition Response Allergies (Food, seasonal, environmental ) Y Other N Drug/Latex Allergies/Reactions N Blood Transfusion N Breast Cancer N Dermatologic Disorders N Lung Disease N Defects or Inherited Disease N Breast Problem N Gestational Diabetes N Hematologic disorders N Anesthesia Complications N History of STI N Deep Vein Thrombosis N Polycystic ovary syndrome N Anxiety Disorder N Autoimmune disease N Arthritis N Polyps N Infertility N Acid Reflux (GERD) N History of abnormal pap N Cancer N Varicosities N Stroke N Neurologic/Epilepsy N Endometriosis N High Cholesterol N Fibromyalgia N Headaches N Kidney Disease N Heart Problems N Thyroid Problems Y Kidney or Bladder Problems N GI Problems N Eating Disorder N Anemia N Art (IVF or FET) N Psychiatric Illness N Ovarian Cancer N Diabetes N Pulmonary (TB, Asthma) N Hepatitis/Liver Disease N No Past Medical History N Eczema N Urinary Tract Infection N Abuse/Domestic Violence N Asthma Y Trauma/Violence N Depression/ depression N Heart Disease N Pre-Eclampsia N Hypertension N Osteoporosis N Thrombophilias N Gynecological History Statement/Question Response Date of Last Mammogram Date of LMP 07/13/2023 STIs/STDs N Date of DEXA bone scan Date of Last Pap Smear 07/31/2023 Current Control Method None LMP Approximate Obstetrics History GPAL:G 0 P 0 0 0 0 Type Value Living 0 Total 0 Past Encounters Encounter ID Performer Location Encounter Start Date Encounter Closed Date Diagnosis/Indication Diagnosis SNOMED-CT Code Diagnosis ICD10 Code Diagnosis IMO Codes Diagnosis Note [id number] PREETI Corral [place] [address] [address] 07/31/2023 13:58:14 07/31/2023 15:18:04 Abnormal uterine bleeding 4027307711 9100 N93.9 Gynecologi c examination 60118045 Z01.419 WWEBC - declinedpa p updatedSTI testing declinedfa m hx discusseds creening mammogram next year at 40UTD with PCP for routine labsdiscus sed 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 She is going to consider her options. Precaution s reviewed with pt.RTC in 1 year or sooner if needed Take Calcium with Vitamin D 1200mg daily if not receiving in daily diet.It is strongly advised to have an annual flu shot and up can obtain at most pharmacies . If you have not had a TDap shot in the last 10 years you should obtain one as well.Lichau ssed with patient & provided with informatio n regarding Gardisil vaccine to prevent the 4 strains for HPV that cause cervical cancer if under age 26.Encoura ge safe sexual practices, to use condoms and limit partners if not already in a monogamous relationsh ip. Do monthly self breast exams.Enga ge in daily exercise of low impact aerobic exercise 45-60 minutes 4-5 times weekly. Avoid tobacco and illicit drugs as well as using moderation with alcohol intake less than 1-2 8 oz beverages daily. This lifestyle behavior pattern will lead to less health conditions and longer life span. If BMI greater than 25 weight watchers or dietary consult advised.Doron wesley received above instructio ns, and questions have been answered. If you have any questions please call or respond to this email.Nell green was made aware of the patient portal and may obtain a paper copy of today's plan if desired. Health Concerns Section Related Observation LastModified by Organization Detai ls LastModified Time None Recorded Concern Status LastModified by Organization Details LastModified Time None Recorded Advance Directives Directive None Recorded Payers Insurance Date Sequence Insurance Name Policy Number Policy [place] Covered Member ID [place] Member ID Guarantor Name 09/01/2024 1 [facility] [id number] Ellen Mancera [id number] Ellen Mancera Notes Date Note Type Note Provider Name and Address Organization Details Recorded Time 3 text/html Annual GYNReported by PatientGenitourinary symptomsFor menstrual cycle, patient reportsnormal menses(periods monthly, lasting 5-6 days. 2-3 heavier days (changing pads every 2-3 hours on these days)). For urinary symptoms, patient reportsno hematuriaandno incontinence. For vulva, patient reportsno genital lesion. For vagina, patient reportsnormal vaginal discharge.Breast symptomsFor breast, patient reportsno breast pain,no breast lump, andno nipple discharge.ContraceptionFo r current contraception, (not sa currently).Endocrine symptomsFor sexual complaints, patient reportsno sexual complaints,no pain during intercourse, andnormal libido. For menopausal symptoms, patient reportsno menopausal symptomsandnormal vaginal lubrication.Psychological symptomsFor psychological symptoms, patient reportsno depression,no anxiety, andno pmdd.Preventative measuresFor preventive measures, patient reportsencourage self breast examination,encourage regular exercise,encourage no tobacco use, andencourage regular mammograms starting age 40.no hx of abnormal papslast pap 2020has benign thyroid u/s per pt PREETI [place] [address], [place], [address], [place] [facility] 07/31/2023 15:17:17 OBGyn Episode No OBEpisode recorded.
[2025-08-12 11:45] LABS: Strep Group A RT-PCR NOT DETECTED (Negative)
[2025-08-12 11:57] LABS: Influenza A QL RT-PCR Negative (Negative); Influenza B QL RT-PCR Negative (Negative); RSV RNA, RT-PCR Negative (Negative); SARS-CoV-2 RNA PCR Negative (Negative)
== END 2025-08-12 10:27 | disposition home or self-care (01) ==
LOC: ANHLAB 10:28
PROVIDERS: PCP Clinical Nurse Specialist; Visit Provider Physician Assistant
DX: J45.909 Unspecified asthma, uncomplicated (principal); R05.9 Cough, unspecified; Z20.822 Contact with and (suspected) exposure to COVID-19
CPT/HCPCS: 87637; 87651

== ENCOUNTER 2025-09-15 14:21 | Outpatient (CLI) | payer OTHER, SELFPAY ==
--- NOTE | ~2025-09-15 | CT_ITS ---
EXAMINATION: CT sinus wo con COMPARISON: None HISTORY: J33.9 - Nasal polyp, unspecified TECHNIQUE: Axial images were obtained without IV contrast. Sagittal, coronal reconstruction images were obtained from the axial views. CT scan performed using dose optimization techniques including the following automated exposure control; adjustment of mA and/or kV; use of iterative reconstruction technique. Automatic exposure control was used to reduce radiation dose. Permanent radiation dose record is archived to PACS. FINDINGS: Visualized brain parenchyma, soft tissues and optic globes appear unremarkable. The frontal sinuses are diminutive with moderate mucosal thickening noted in the ethmoidal air cells bilaterally. There is severe opacification of the maxillary sinuses bilaterally especially on the right with sequelae of previous surgery noted. The nasal septum is near midline. There is thickening of the turbinates with mild either the nasal cavities. Minimal mucosal thickening noted of the sphenoid sinuses. There is no osseous destruction or wall thickening identified. IMPRESSION: Sinusitis detailed above with underlying polyp formation suspected. Reviewed, dictated and finalized at location P. ISH TEACHER
--- OUTSIDE RECORDS SUMMARY | 2025-09-15 15:40 | XMS_ITS | Data Portability ---
Author Organization [facility] Address [address] [place] [address] Assessment No assessment recorded. Plan of Treatment Reminders Order Date Submit Date Provider Last Modified By Organization Details Last Modified Time Details Appointments None recorded. Lab test, urine 2022 023 [email or web address] 1 [place], [address], [place], [address], 14:41:38 urinalysis , dipstick 2022 023 [email or web address] 1 [place], [address], [place], [address], 14:43:09 Referral None recorded. Procedures None recorded. [...] Kasia, CT Rescr een: Jackelyn wadsworth, Zaynab moon, CT Speci men: Scree nelson Pap - [...] clini pedro luis young nted. Not Available [facility] (Lab) [address], [place], [address], 08/02/2023 23:23:07 07/31/2007/31/2023 urina lysis , dipst ick Leukocytes normal Not Available [facility] [address], [place], [address], 07/31/2023 14:42:13 07/31/2007/31/2023 urina lysis , dipst ick Nitrite normal Not Available [place] [address], [place], [address], 07/31/2023 14:42:13 07/31/2007/31/2023 urina lysis , dipst ick Urobilinogen normal Not Available [facility] [address], [place], [address], 07/31/2023 14:42:13 07/31/2007/31/2023 urina lysis , dipst ick Protein trace Not Available [place] [address], [place], [address], 07/31/2023 14:42:13 07/31/2007/31/2023 urina lysis , dipst ick pH 8 Not Available [place] [address], [place], [address], 07/31/2023 14:42:13 07/31/2007/31/2023 urina lysis , dipst ick Specific [place] 1.020 Not Available Timo mcclellan [address], [place], [address], 07/31/2023 14:42:13 07/31/2007/31/2023 urina lysis , dipst ick Ketone normal Not Available [place] [address], [place], [address], 07/31/2023 14:42:13 07/31/2007/31/2023 urina lysis , dipst ick Bilirubin normal Not Available [facility] [address] [address], [place], [address], 07/31/2023 14:42:13 07/31/2007/31/2023 urina lysis , dipst ick Glucose normal Not Available [place] [address], [place], [address], 07/31/2023 14:42:13 07/31/2007/31/2023 urina lysis , dipst ick Appearance normal [facility] Available [facility] [address], [place], [address], 07/31/2023 14:42:13 07/31/2007/31/2023 urina lysis , dipst ick Color normal Not Available [place] [address], [place], [address], 07/31/2023 14:42:13 07/31/2007/31/2023 pregn grisel test, urine HCG negati ve Not Available [place] [address], [place], [address], 07/31/2023 14:40:37 Result Notes None recorded. Procedures Surgical History Date Name Laterality Status Provider Name and Address Organization Details Recorded Time 10/17/202 3 Date of Last Pap Smear completed Tiffanie Duarte [facility] 07/31/2023 14:33:55 5 Nsl/sins ndsc surg bx polypc completed Tiffanie Duarte [facility] 07/31/2023 14:37:34 Imaging Results None recorded. Procedure Notes None recorded. Medical Equipment None Reported. Allergies No known drug allergies Vitals Date Recorded Body height Body mass index (BMI) Body weight Systolic And Diastolic Provider Name and Address Organization Details Last Updated DateTime 07/31/2023 160.66 cm 29.2 kg/m2 97603.33 g 120/78 mm[Hg] Tiffanie Duarte [facility] 07/31/2023 14:33:36 Social History Question Answer Notes LastModified by Organizat ion Details LastModified Time Tobacco Smoking Status Former Smoker Tiffanie Duarte [facility], [facility] 07/31/2023 14:36:56 Are You Blind Or Do You Have Difficulty Seeing? No [email or web address] Information n ot available 07/31/2023 What Is Your Level Of Caffeine Consumption? Moderate Information not available 07/31/2023 In The 14 Days Before Symptom Onset, Have You Had Close Contact With A Laboratory-confirm ed COVID-19 While That Case Was Ill? No [email or web address] Information n ot available 07/31/2023 In The 14 Days Before Symptom Onset, Have You Had Close Contact With A Person Who Is Under Investigation For COVID-19 While That Person Was Ill? No Information not available 07/31/2023 Have You Been To An Area Known To Be High Risk For COVID-19? No Information not available 07/31/2023 Are You Deaf Or Do You Have Serious Difficulty Hearing? No [email or web address] Information not available 07/31/2023 What Type Of Diet Are You Following? REGULAR Information n ot available 07/31/2023 Have You Ever Been Counseled For Unhealthy Alcohol Use? No Information not available 07/31/2023 Do You Have Smoke And Carbon Monoxide Detectors In Your Home? Yes [email or web address] Information not available 07/31/2023 Do You Use Sunscreen Routinely? Yes [email or web address] Information not available 07/31/2023 Has Tobacco Cessation Counseling Been Provided? No [email or web address] Information not available 07/31/2023 Do You Have Difficulty Walking Or Climbing Stairs? No [email or web address] Information not available 07/31/2023 Sex: Unknown Functional Status Question Answer Note LastModified by Organizat ion Details LastModified Time Do you use any illicit or recreational drugs? No [email or web address] Information not available 07/31/2023 Do you or have you ever used any other forms of tobacco or nicotine? No [email or web address] Information not available 07/31/2023 What is your level of alcohol consumption? Occasional Information not available 07/31/2023 Are you able to walk independently without assistance or assistive devices? YESWOREST [email or web address] Information not available 07/31/2023 Are you able to care for yourself independently? Yes Information not available 07/31/2023 Do you have difficulty dressing, bathing, grooming, or toileting? No [email or web address] Information not available 07/31/2023 What is your exercise level? Occasional [email or web address] Information not available 07/31/2023 Mental Status Question Answer Note LastModified by Organization D etails LastModified Time Do you feel stressed (tense, restless, nervous, or anxious, or unable to sleep at night)? [id number] [email or web address] Information not available 07/31/2023 Family History Relationship Description Onset Age of this Age Resolved Age Notes LastModified by Organization Details LastModified Time Maternal Grandfather Heart disease [email or web address] Not available 07/31 18:45:00 Father Malignant neoplasm of lung [email or web address] Not available 07/31 18:45:10 Mother Mental disorder [email or web address] Not available 07/31 18:45:39 Mother Disorder of thyroid gland [email or web address] Not available 07/31 18:46:09 Sister Mental disorder [email or web address] Not available 07/31 18:45:39 Sister Disorder of thyroid gland tatlortd26 Not available 07/31 18:46:09 Maternal Grandmother Disorder of thyroid gland [email or web address] Not available 07/31 18:46:09 Medical History Condition [...] ICD10 Code Diagnosis IMO Codes Diagnosis Note [id number] PREETI Corral [place] [address] [address] 07/31/2023 13:58:14 07/31/2023 15:18:04 Abnormal uterine bleeding [id number] 9100 N93.9 Gynecologi c examination [id number] Z01.419 WWEBC - declinedpa p updatedSTI testing declinedfa m hx discusseds creening mammogram next year at 40UTD with PCP for routine labsdiscus sed options 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 She is going to consider [...] [place] Member ID Guarantor Name 09/01/2024 1 [facility] [id number] Ellen Mancera [id number] Ellen Mancera Notes Date Note Type Note [...] per pt PREETI [place] [address], [place], [address], [place] - [facility] 07/31/2023 15:17:17 OBGyn Episode No OBEpisode recorded.
--- OUTSIDE RECORDS SUMMARY | 2025-09-15 15:40 | XMS_ITS | Encounter Summary ---
Author Organization [facility] Address [address] [place] [id number] Care Team Providers Care Behavioral Medical Director Name Role Phone Rachel De Los Santos Primary Care Provider [phone] Encounter Details Date Type Department Care Team (Late st Contact Info) Description 02/08/2022 MyChart Message Enc [facility] Family & Internal Medicine [address] [phone] Rachel De Los Santos FNP [facility] [place] [address] Upcoming appointment but current ear pain Social [...] documented as of this encounter Care Teams Behavioral Medical Director Relationship Specialty Start Date End Date Rachel De Los Santos FNP [address] [place] [address] PCP - General NURSE PRACTITIONER 03/08/18 documented as of this encounter
--- OUTSIDE RECORDS SUMMARY | 2025-09-15 15:40 | XMS_ITS | Clinical Summary ---
Author Organization [facility] Address [facility] [place] [address] Care Team Providers Care Utility Operator Name Role Phone Rachel De Los Santos PLASTICS SUPERVISOR Primary Care Provider [phone] Allergies Active Allergy Reactions Criticality Noted Date [...] HPV 01/12/2024 Mammogram Screening 2024 PHQ-2 (Physician Koi) 10/15/2024 COVID-19 Vaccine (2024-2 6 season) 2025 [...] 4:30 PM CDT) CLINICAL INFORMATION: Routine exam [facility] Clinical Information: 01/06/2021 [facility] Date of Last Pap INFORMATION NOT PROVIDED [facility] Previous Biopsy? INFORMATION NOT PROVIDED [facility] SOURCE (QST) Cervix, Endocervix [facility] STATEMENT OF ADEQUACY: [facility] Comment: Satisfactory for evaluation. Endocervical/transformation zone component present. PAP INTERPRETATION/RESU LTS Negative for intraepithelial lesion or malignancy. [facility] CONTRACT ATTORNEY [facility] Comment: TMK, YOGESH(ASCP) CT screening location: [place] [address] [place] [address] COMMENT: [facility] Comment: EXPLANATORY NOTE: The Pap is [...] CDT Rachel TANNER PATHOLOGY/CYTOLOGY ORDERABLES Final Result [facility] [address] [place] [address] from Last 3 Months or Most Recently Relevant to Health Maintenance Insurance [employer] Care Teams Utility Operator Relationship Specialty Start Date End Date Rachel De Los Santos FNP [address] [place] [address] PCP - General NURSE PRACTITIONER 03/08/18
--- OUTSIDE RECORDS SUMMARY | 2025-09-15 15:40 | XMS_ITS | Encounter Summary ---
Author Organization [facility] Address [address] [address] Care Team Providers Care Sprinkler Helper Name Role Phone Rachel De Los Santos Primary Care Provider [phone] Encounter Details Date Type Department Care Team (Late st Contact Info) Description 10/26/2021 MyChart Message Enc [facility] Medical [facility] Family & Internal Medicine [address] [phone] Rachel De Los Santos FNP [facility] [place], [place] [id number] Feeling ill Social History Tobacco Use Types [...] COVID-19? No / Unsure 10/26/2021 4:05 PM PLASMA CENTER TECHNICIAN documented as of this encounter Plan of Treatment Not on file documented as of this encounter Visit Diagnoses Not on filedocumented in this encounter Additional Health Concerns Infection Onset Date Last Indicated Resolved Time COVID-19 Rule Out 10/27/2021 10/27/2021 10/27/2021 4:28 PM PLASMA CENTER TECHNICIAN Assessment Noted Time PHQ-9 Depression Total Score: 5 02/05/20 21 1:22 PM CDT documented as of this encounter Care Teams Sprinkler Helper Relationship Specialty Start Date End Date Rachel De Los Santos FNP [address] [place] [address] PCP - General NURSE PRACTITIONER 03/08/18 documented as of this encounter
--- OUTSIDE RECORDS SUMMARY | 2025-09-15 15:40 | XMS_ITS | Clinical Summary ---
Author Organization [facility] Address [address] [place] [address] Care Team Providers Care Showroom Sales Assistant Name Role Phone Elizabet Davalos NP Primary Care Provider [phone] Allergies Active Allergy Reactions Criticality Noted Date [...] (2 - Td or Tdap) 02/15/203212/2021 Insurance [address] [place] [address] [facility] [address] [place] [address] R [facility] Advance Directives For more information, please contact: [phone] * Full Code (Latest Code Status on File) Date Activated Date Inactivated Comments 01/20/2025 11:18 AM 01/20/2025 8:49 PM Care Teams Showroom Sales Assistant Relationship Specialty Start Date End Date Elizabet Davalos NP [address] [facility] [address] [address] PCP - General Cardiovascular Disease 01/07/25
== END 2025-09-15 14:22 | disposition home or self-care (01) ==
PROVIDERS: PCP Clinical Nurse Specialist; Visit Provider Otolaryngology
DX: J33.9 Nasal polyp, unspecified (principal); J32.9 Chronic sinusitis, unspecified; J34.2 Deviated nasal septum
CPT/HCPCS: 70486